=== PATIENT | female | born 1950 | race Caucasian/White ===

== ENCOUNTER → 2020-01-29 08:21 | Outpatient (CLI) | payer MEDICARE, OTHER, SELFPAY ==
[2020-01-29 10:05] LABS: ALB/GLOB Ratio 1.1 RATIO (0.9-2.4); AST(SGOT) 16 U/L (15-37); Alanine Aminotransfer ALT/SGPT 16 U/L (13-56); Albumin, Serum 4.1 g/dL (3.2-5.0); Alkaline Phosphatase 63 U/L (45-117); Anion Gap 3 (5-15); BUN 9 mg/dL (7-18); BUN/Creat Ratio 12.7 RATIO (10-20); Calcium,Total 8.8 mg/dL (8.5-10.1); Chloride 107 mmol/L (98-107); Cholesterol 243 mg/dL (200); Creatinine, Serum 0.71 mg/dL (0.55-1.02); EST Glomerular Filtration Rate 86 mL/min (>60); Est Glom Filt Rate - Afr Amer 104 mL/min (>60); Globulin 3.8 g/dL (2.2-4.2); Glucose 92 mg/dL (74-106); High Density Lipoprotein 63 mg/dL; Potassium 3.8 mmol/L (3.5-5.1); Protein, Total 7.9 g/dL (6.4-8.2); Sodium Level 139 mmol/L (136-145); Triglycerides 170 mg/dL; Very Low Density Lipoprotein 34 mg/dL (5-40)
== END ==
PROVIDERS: PCP Family Medicine; Referring Provider Family Medicine; Visit Provider Family Medicine
DX: E78.5 Hyperlipidemia, unspecified (principal)
CPT/HCPCS: 36415; 80053; 80061

== ENCOUNTER → 2020-02-22 07:51 | Outpatient (CLI) | payer MEDICARE, OTHER, SELFPAY ==
--- NOTE | 2020-02-22 07:53 | BI_ITS ---
MAMMOGRAPHY - BILATERAL SCREENING REASON FOR EXAM: Female, 69 years old. Routine annual screening examination. PERTINENT HISTORY: Non-contributory. TECHNIQUE: Digital bilateral breast murray (3D mammographic acquisition) in the CC and MLO projections. 2-D mediolateral oblique (MLO) and craniocaudad (CC) views of both breasts were obtained. CAD: Full Field Digital Mammography with Computer Added Detection was performed. COMPARISON: No comparison mammograms available at this time. If any prior films become available, an addendum to this report can be generated. FINDINGS: Breast Composition: The breasts are almost entirely fatty. There are no dominant masses or suspicious calcifications. Small benign-appearing bilateral axillary lymph nodes. No other significant abnormalities are identified. There has been no significant change since the prior study. BI/SCREEN MAMM (CAD) W/MURRAY BILAT IMPRESSION: Stable bilateral screening mammogram. Yearly follow-up mammogram recommended. (A) ASSESSMENT CATEGORY: BIRADS Category 2: Benign. A letter regarding these results will be sent to the patient by the facility within 30 days. Approximately 10% of breast cancers are not detected by mammography. A normal mammogram should not delay biopsy of a clinically suspicious abnormality. [id number] Electronically Signed: Noe Capps, at 12:53 EDT , Service support ,
== END ==
PROVIDERS: PCP Family Medicine; Referring Provider Family Medicine; Visit Provider Family Medicine
DX: Z12.31 Encounter for screening mammogram for malignant neoplasm of breast (principal)
CPT/HCPCS: 77063; 77067

== ENCOUNTER → 2020-12-19 17:00 | Outpatient (CLI) | payer MEDICARE, OTHER, SELFPAY ==
[2020-12-19 18:20] LABS: Lymphocyte 25 % (19-41); Metamyelocyte 6 % (0-1); Monocyte 29 % (0-10); Neutrophil-Segmented 40 % (47-70); Total Cells Counted 100 (MANUAL DIFF)
[2020-12-19 18:24] LABS: Hematocrit 37.3 % (37-47); Hemoglobin 11.7 g/dL (12.0-15.0); Mean Corpuscular Hgb 27.7 pg (27.0-32.0); Mean Corpuscular Volume 88.2 fL (81-99); Red Blood Count 4.23 M/mm3 (4.2-5.4); White Blood Count 8.3 K/mm3 (4.4-11.0)
[2020-12-19 18:25] LABS: Differential Indicated MANUAL DIFF; Mean Corp Hgb Conc 31.4 g/dL (32-36); Mean Platelet Vol. 11.9 fl (6.2-12.0); POSITIVE COUNT YES; POSITIVE DIFFERENTIAL YES; POSITIVE MORPHOLOGY YES; Platelet Count 207 K/mm3 (150-450); RBC Distribution Width CV 13.5 % (11.6-14.6); RBC Distribution Width SD 43.6 fl (35.1-43.9)
[2020-12-19 18:26] LABS: Basophil% 0.1 % (0-1); Eosinophils% 1.2 % (0-5); Monocyte% 29.9 % (0-10); Neutrophil % 42.4 % (47-70)
[2020-12-19 18:29] LABS: Absolute Lymphocyte Count 2.07 X10^3/uL (0.83-4.51); Absolute Neutrophil Count 3.3 X10^3/uL (2.0-7.7); Basophil# 0.01 X10^3/uL; Lymphocyte # 1.74 X10^3/ul (0.83-4.51); Monocyte# 2.47 X10^3/uL
[2020-12-19 18:30] LABS: Anisocytosis RARE; Platelet Estimate ADEQUATE (ADEQ); Red Cell Morphology N CHROM NORMAL (NORM C&C)
[2020-12-19 19:26] LABS: ALB/GLOB Ratio 1.3 RATIO (0.9-2.4); AST(SGOT) 33 U/L (15-37); Alanine Aminotransfer ALT/SGPT 31 U/L (13-56); Albumin, Serum 4.2 g/dL (3.2-5.0); Alkaline Phosphatase 92 U/L (45-117); Anion Gap 10 (5-15); BUN 10 mg/dL (7-18); BUN/Creat Ratio 12.7 RATIO (10-20); Calcium,Total 8.7 mg/dL (8.5-10.1); Chloride 99 mmol/L (98-107); Creatinine, Serum 0.79 mg/dL (0.55-1.02); EST Glomerular Filtration Rate 76 mL/min (>60); Est Glom Filt Rate - Afr Amer 92 mL/min (>60); Globulin 3.3 g/dL (2.2-4.2); Glucose 86 mg/dL (74-106); Protein, Total 7.5 g/dL (6.4-8.2); Sodium Level 137 mmol/L (136-145)
[2020-12-20 10:20] LABS: Pathologist Review Reviewed
== END ==
PROVIDERS: PCP Family Medicine; Referring Provider Family Medicine; Visit Provider Family Medicine
DX: K57.92 Diverticulitis of intestine, part unspecified, without perforation or abscess without bleeding (principal)
CPT/HCPCS: 36415; 80053; 85025

== ENCOUNTER → 2020-12-20 08:37 | Outpatient (CLI) | payer MEDICARE, OTHER, SELFPAY ==
--- NOTE | 2020-12-20 08:41 | CT_ITS ---
STUDY: CT ABDOMEN AND PELVIS WITH CONTRAST REASON FOR EXAM: Female, 70 years old. DIVERTICULITIS RADIATION DOSAGE (If Supplied By Facility): CTDIvol = ( 6.9 ) mGy, DLP = ( 448.58 ) mGycm TECHNIQUE: Transaxial images were obtained from the dome of the diaphragm to the symphysis pubis with oral contrast. Oral and amp; IV Gastrografin and amp; 100mL Isovue-300 was administered. Sagittal and coronal images were reconstructed. Individualized dose optimization techniques were used for this CT. COMPARISON: None. FINDINGS: Calcified granulomas in the left lower lobe. The visualized portions of the heart are within normal limits. Normal liver. There are surgical clips in the gallbladder fossa consistent with a prior cholecystectomy. There are multiple benign calcified granulomata of the spleen. Normal pancreas. Normal bilateral adrenal glands. Subcentimeters cyst in the medial midportion of the right kidney. The sigmoid colon centimeters cyst in the midportion of the left kidney. There is a small hiatal hernia. Normal small intestine. There is diverticulosis, with thickening of the colon wall, and pericolonic inflammation changes consistent with acute sigmoid diverticulitis. There is a 1.2 cm x 1.2 cm focal hypodensity along the antimesenteric aspect of the sigmoid colon. This may represent a focal area of phlegmon. Follow-up is recommended. The appendix is visualized and appears normal. There is diffuse atherosclerotic calcification of the abdominal aorta, and its major visceral branches without a demonstrated aneurysm. Normal inferior vena cava. Normal retroperitoneum. Normal urinary bladder. A tiny amount of fluid is seen in the right cul-de-sac. Normal abdominal wall. There are diffuse degenerative changes of the visualized lumbar spine. Minimal anterior listhesis of L3 on L4. CT/Abdomen/Pelvis WITH Contrast IMPRESSION: Sigmoid diverticulitis as described. Small bilateral renal cysts. A tiny amount of free fluid is seen in the pelvis. Electronically Signed: Noe Capps MD at 11:55 EDT , Service support ,
== END ==
PROVIDERS: PCP Family Medicine; Referring Provider Family Medicine; Visit Provider Family Medicine
DX: K57.92 Diverticulitis of intestine, part unspecified, without perforation or abscess without bleeding (principal)
CPT/HCPCS: 74177; Q9967; A4216

== ENCOUNTER → 2021-01-02 10:08 | Outpatient (CLI) | payer MEDICARE, OTHER, SELFPAY ==
[2021-01-02 12:44] LABS: AST(SGOT) 11 U/L (15-37); Alanine Aminotransfer ALT/SGPT 16 U/L (13-56); Albumin, Serum 3.8 g/dL (3.2-5.0); Alkaline Phosphatase 57 U/L (45-117); Anion Gap 9 (5-15); BUN 6 mg/dL (7-18); BUN/Creat Ratio 11.5 RATIO (10-20); Calcium,Total 8.6 mg/dL (8.5-10.1); Chloride 101 mmol/L (98-107); Cholesterol 196 mg/dL (200); Creatinine, Serum 0.52 mg/dL (0.55-1.02); EST Glomerular Filtration Rate 122 mL/min (>60); Est Glom Filt Rate - Afr Amer 147 mL/min (>60); Globulin 3.7 g/dL (2.2-4.2); Glucose 68 mg/dL (74-106); High Density Lipoprotein 56 mg/dL; Potassium 3.8 mmol/L (3.5-5.1); Protein, Total 7.5 g/dL (6.4-8.2); Sodium Level 139 mmol/L (136-145); Triglycerides 153 mg/dL; Very Low Density Lipoprotein 31 mg/dL (5-40)
== END ==
PROVIDERS: PCP Family Medicine; Referring Provider Family Medicine; Visit Provider Family Medicine
DX: E78.5 Hyperlipidemia, unspecified (principal)
CPT/HCPCS: 36415; 80053; 80061

== ENCOUNTER → 2021-01-14 09:23 | Outpatient (CLI) | payer MEDICARE, OTHER, SELFPAY ==
--- NOTE | 2021-01-14 09:26 | RAD_ITS ---
STUDY: X-RAY - LEFT HAND REASON FOR EXAM: Female, 70 years old. Pain. Evaluate for arthritis. TECHNIQUE: 3 view(s) of the hand. COMPARISON: None. FINDINGS: Marked generalized osteopenia. Moderate arthrosis of the radiocarpal articulation. Moderate arthrosis of the radiocarpal row. Moderate arthrosis of the first CMC joint. Moderate arthrosis of the MCP and IP joints with central erosions of the DIP joints of the second, third, fourth and fifth digits. The soft tissue structures are unremarkable. RAD/Hand Min 3 Views IMPRESSION: Osteopenia with diffuse moderate erosive osteoarthropathy. No acute abnormality. Electronically Signed: Landon Tapia MD at 9:54 EDT , Service support ,
--- NOTE | 2021-01-14 09:27 | RAD_ITS ---
STUDY: X-RAY - RIGHT HAND REASON FOR EXAM: Female, 70 years old. Pain. Evaluate for arthritis. TECHNIQUE: 3 view(s) of the hand. COMPARISON: None. FINDINGS: Marked generalized osteopenia. Moderate arthrosis of the radiocarpal articulation. Moderate arthrosis of the radial carpal row. Moderate arthrosis at the first CMC joint. Mild osteoarthritic changes of the MCP joints. Moderate osteoarthritic changes of the PIP joints with central erosive changes of the first, second, third, fourth and fifth digits. The soft tissue structures are unremarkable. RAD/Hand Min 3 Views IMPRESSION: Osteopenia with moderate changes of erosive osteoarthropathy. No acute abnormality or periostitis. Electronically Signed: Landon Tapia MD at 9:57 EDT , Service support ,
[2021-01-14 11:39] LABS: Erythrocyte Sedimentation Rate 27 mm/hr (0-30)
[2021-01-14 12:11] LABS: CRP < 2.90 mg/L (0.0-3.0); Rheumatoid Factor < 10.0 IU/mL (<15)
[2021-01-16 07:49] LABS: CCP IgG Antibodies 6 units (0-19)
[2021-01-16 13:36] LABS: ANTINUCLEAR ANTIBODIES DIRECT Positive (Negative)
== END ==
PROVIDERS: PCP Family Medicine; Referring Provider Family Medicine; Visit Provider Family Medicine
DX: M19.041 Primary osteoarthritis, right hand (principal); M19.042 Primary osteoarthritis, left hand
CPT/HCPCS: 36415; 73130; 85652; 86038; 86140; 86200; 86431

== ENCOUNTER 2021-02-11 08:30 | Outpatient (RCR) | payer MEDICARE, OTHER, SELFPAY ==
--- NOTE | 2021-01-24 10:57 | HP.OTEVAL ---
Patient's Visit Information KUSH CHATMAN is a 70 year old F, referred to Occupational Therapy by Dr. Chapo Esquivel MD, with a diagnosis of Bilateral hand arthritis. Date of Evaluation: 01/21/21 Occupational Therapist: Kristen Bone, OTR/L, CHT - Subjective This 70/F was seen for initial OT eval for bilateral hand arthritis. 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 She lives alone, but her sister lives across the street. She enjoys spending time with her 5 grandkids and her 3 great-grandkids. She enjoys reading, but sometimes has to put the book down in order for her to stretch out her hands. She reported new/tight jars are tough and buttons can be awkward, but her other ADLs and IADLs are going fine. She is R handed and stated that her handwriting really hasn't changed with her increased stiffness. She is going to see a RA doctor here soon for a 2nd opinion. Her hands are really stiff when she wakes up, but soaking them in warm water helps. She denies numbness/tingling, and it does not wake her up at night. - Pain Bilateral Hands 1 Pain Intensity Range: 5, 9 - Objective Pt demonstrated swan-neck deformities on her R IF, MF, and RF, as well as her L IF and RF. She also hyperextends at her PIP jts of all fingers and her MCPs are flexed. - ROM Wrist: R: 55*/80* L: 60*/60* Opposition: 10 MP: R IF: 80*, MF: 85*, RF: 85*, LF: 85*. L IF: 70*, MF: 75*, RF: 80*, LF: 75* PIP: R IF: 95*, MF: 98*, RF: 98*, LF: 95*. L IF: 85*, MF:90*, RF: 105*, LF: 100* DIP: R IF: 65*, MF: 65*, RF: 60*, LF: 65*. L IF: 70*, MF: 45*, RF: 60*, LF: 60* ROM Comments: R IF DIP extension: -20*, MF: -10*, RF: -15*, LF: -20*. L IF DIP extension: -35*, MF: -10*, RF:0*, LF: 0* - Strength Preparation Room Worker: R: 35#, L:22# Lateral Pinch: R: 12#, L:12# Tripod Pinch: R: 9#, L:9# Tip-to-Tip Pinch: R: 6#, L:6# Strength Comments: Pt reported discomfort with 3-jaw sachin and tip pinch. 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 with ADLs and IADLs by d.c Goal:: pt will report bilateral hand pain less than 3/10 with use of bilateral hands with ADLs and IADLs by d/c Goal:: Pt will self-report increased knowledge and implementation of joint protection and energy conservation techniques by next session. pt will demo understanding of using ad. eq. to prevent joint stress with ADLs and IADL by 3rd session. Goal:: pt will self-report a decrease in stiffness by 70% in the morning after implementation of HEP and stretches to increase ability to open jars and don button down shirts. - Rehabilitation General Assessment: pt demonstrated swan-neck deformities, increased pain with composite fists, increased stiffness, a slight decrease in strength and decreased finger ROM. Pt would benefit from skilled OT services 1-2x a week for 5 weeks to manage stiffness, increase strength, and education ADL adaptations to preserve joints. Today, therapist performed trigger point release and PROM to MCPs, PIPs, and DIPs to bilateral hands after paraffin wax to decrease pain and stiffness. Pt was also educated on joint conservation and agreed with POC. Therapy session was directly supervised and doc. approved by Kristen Bone OTR/L,CHT Rehabilitation Potential: Fair - Anticipated Interventions A/AAROM/PROM, Triggerpoint Release, Modalities, Joint Protection/Energy Conservation, ADL Training, Home Program - Visit Plan Frequency: 1-2x /Week Duration: 4-6 Weeks TEXT: Thank you for the opportunity to evaluate your patient. For Medicare and Medicare HMO plans, please review the plan of care and approve it. It will need to be FAXED BACK to us at [phone] for Medicare purposes. Please let me know if there are questions or concerns regarding this plan of care. Physician Signature: Date:
--- NOTE | 2021-02-11 08:37 | HP.OTDCSUM ---
It has been my pleasure to treat KUSH CHATMAN under orders from Dr. Chapo Esquivel MD, for the diagnosis of Bilateral hand arthritis for a total of 4 visit(s). Please see the following information for a summary of their discharge status. % Improvement: 70 Objective/Function: right 30# left 25#. 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 pt reports she has made home modifications with ADls and IADsl. 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 with ADLs and IADLs by d.c Goal:: pt will report bilateral hand pain less than 3/10 with use of bilateral hands with ADLs and IADLs by d/c Goal:: Pt will self-report increased knowledge and implementation of joint protection and energy conservation techniques by next session. pt will demo understanding of using ad. eq. to prevent joint stress with ADLs and IADL by 3rd session. Goal:: pt will self-report a decrease in stiffness by 70% in the morning after implementation of HEP and stretches to increase ability to open jars and don button down shirts. Plan: D/C Discharge Comments: pt was seen for 4 OT visits- Therapy ed. pt on joint protection tang. and ad. eq. to assist in GEO with ADls. Pt at this time states she is still doing her yard care and home mtg. Pt reports her hands do not stop- pt agrees to POC. If there are questions or concerns regarding this patient's occupational therapy, please fell free to call me at [phone]. Thank you for the referral of this patient. Sincerely, Kristen Bone, OTR/L, CHT
== END 2021-02-11 19:00 | disposition home or self-care (01) ==
LOC: OT 08:30
PROVIDERS: PCP Family Medicine; Referring Provider Family Medicine; Visit Provider Family Medicine
DX: M19.042 Primary osteoarthritis, left hand (principal); M19.041 Primary osteoarthritis, right hand
CPT/HCPCS: 97140; 97165; 97530

== ENCOUNTER 2021-07-22 09:20 | Outpatient (CLI) | payer MEDICARE, OTHER, SELFPAY ==
[2021-07-22 12:22] LABS: Hematocrit 39.7 % (37-47); Hemoglobin 12.8 g/dL (12.0-15.0); Mean Corp Hgb Conc 32.2 g/dL (32-36); Mean Corpuscular Hgb 28.6 pg (27.0-32.0); Mean Corpuscular Volume 88.6 fL (81-99); Mean Platelet Vol. 11.5 fl (6.2-12.0); POSITIVE COUNT YES; POSITIVE MORPHOLOGY YES; Platelet Count 249 K/mm3 (150-450); RBC Distribution Width CV 12.8 % (11.6-14.6); Red Blood Count 4.48 M/mm3 (4.2-5.4); White Blood Count 3.6 K/mm3 (4.4-11.0)
[2021-07-22 12:23] LABS: Differential Indicated MANUAL DIFF
[2021-07-22 12:54] LABS: AST(SGOT) 12 U/L (15-37); Alanine Aminotransfer ALT/SGPT 15 U/L (13-56); Alkaline Phosphatase 61 U/L (45-117); Anion Gap 7 (5-15); BUN 8 mg/dL (7-18); BUN/Creat Ratio 12.1 RATIO (10-20); Chloride 104 mmol/L (98-107); Creatinine, Serum 0.66 mg/dL (0.55-1.02); EST Glomerular Filtration Rate 93 mL/min (>60); Est Glom Filt Rate - Afr Amer 113 mL/min (>60); Globulin 4.1 g/dL (2.2-4.2); Glucose 87 mg/dL (74-106); Potassium 3.6 mmol/L (3.5-5.1); Protein, Total 8.1 g/dL (6.4-8.2); Sodium Level 138 mmol/L (136-145); T4 Free Direct 1.07 ng/dL (0.76-1.46); Thyroid Stim Hormone (TSH) 3.48 uIU/mL (0.358-3.74)
[2021-07-22 13:13] LABS: Eosinophil 1 % (0-5); Lymphocyte 35 % (19-41); Metamyelocyte 3 % (0-1); Monocyte 17 % (0-10); Myelocyte 5 % (0-0); Neutrophil-Segmented 39 % (47-70); Total Cells Counted 100 (MANUAL DIFF)
[2021-07-22 13:14] LABS: Platelet Estimate ADEQUATE (ADEQ); Red Cell Morphology NORM C+C NORMAL (NORM C&C)
[2021-07-22 13:15] LABS: Absolute Neutrophil Count 1.4 X10^3/uL (2.0-7.7)
[2021-07-23 17:54] LABS: Anti-Thyroglobulin AB < 1.0 IU/mL (0.0-0.9); Thyroglobulin, Serum Qt. 17.5 ng/mL (1.5-38.5); Thyroid Peroxidase AB < 8 IU/mL (0-34)
[2021-07-24 12:51] LABS: Pathologist Review Reviewed
== END 2021-07-22 23:59 | disposition home or self-care (01) ==
LOC: MFPLAB 09:21
PROVIDERS: PCP Family Medicine; Referring Provider Family Medicine; Visit Provider Family Medicine
DX: E04.1 Nontoxic single thyroid nodule (principal)
CPT/HCPCS: 36415; 80053; 84432; 84439; 84443; 85025; 86376; 86800

== ENCOUNTER 2021-07-29 14:11 | Outpatient (CLI) | payer MEDICARE, OTHER, SELFPAY ==
--- NOTE | 2021-07-29 14:15 | BI_ITS ---
MAMMOGRAPHY - BILATERAL SCREENING REASON FOR EXAM: Female, 71 years old. Routine annual screening examination. PERTINENT HISTORY: Non-contributory. TECHNIQUE: Digital bilateral breast murray (3D mammographic acquisition) in the CC and MLO projections. 2-D mediolateral oblique (MLO) and craniocaudad (CC) views of both breasts were obtained. CAD: Full Field Digital Mammography with Computer Added Detection was performed. COMPARISON: Comparison is made with prior study dated 02/22/2020. FINDINGS: Breast Composition: There are scattered areas of fibroglandular density. There are no dominant masses or suspicious calcifications. No other significant abnormalities are identified. There has been no significant change since the prior study. BI/SCRN MAMM (CAD)W/MURRAY BILAT IMPRESSION: Stable bilateral screening mammogram. Yearly follow-up mammogram recommended. (A) ASSESSMENT CATEGORY: BIRADS Category 1: Negative. A letter regarding these results will be sent to the patient by the facility within 30 days. Approximately 10% of breast cancers are not detected by mammography. A normal mammogram should not delay biopsy of a clinically suspicious abnormality. [id number] Electronically Signed: Noe Capps MD at 15:28 EST ,
--- NOTE | 2021-07-29 14:16 | US_ITS ---
STUDY: THYROID ULTRASOUND REASON FOR EXAM: Female, 71 years old. Thyroid nodule felt on examination. TECHNIQUE: Ultrasound evaluation of the thyroid was performed with real-time and static coppola-scale imaging. COMPARISON: None. FINDINGS: RIGHT LOBE: The right lobe of the thyroid gland measures 2.9 cm x 1.4 cm x 1.4 cm. There is a homogeneous echotexture. There are no demonstrated solid, cystic or complex lesions. LEFT LOBE: The left lobe of the thyroid gland measures 3.1 cm x 1.1 cm x 1.3 cm. There is a homogeneous echotexture. There are no demonstrated solid, cystic or complex lesions. ISTHMUS: The isthmus measures 2.0 mm. The regional lymph nodes are normal. US/Thyroid IMPRESSION: Normal ultrasound examination of the thyroid. Electronically Signed: Noe Capps MD at 14:09 EST ,
--- NOTE | 2021-07-29 14:49 | BD_ITS ---
STUDY: DUAL ENERGY X-RAY ABSORPTIOMETRY / DXA REASON FOR EXAM: Female, 71 years old. [id number]. Patient is postmenopausal. TECHNIQUE: Bone Mineral Density (BMD) measurements of lumbar spine and bilateral hips were obtained. COMPARISON: None. FINDINGS: Lumbar Spine (L1-L4): g/cm2 (1.319) / T-score (2.5) / Z-score (4.8) Findings are suggestive of normal bone density with a low fracture risk. Left Femur Total: g/cm2 (1.146) / T-score (1.7) / Z-score (3.4) Left Femoral Neck: g/cm2 (1.075) / T-score (2.0) / Z-score (4.0) Right Femur Total: g/cm2 (1.115) / T-score (1.4) / Z-score (3.1) Right Femoral Neck: g/cm2 (1.018) / T-score (1.5) / Z-score (3.5) BD/Dexa Bone Density Study IMPRESSION: The patient is considered normal as outlined below according to World [employer] Organization (WHO) criteria with a low fracture risk. Reference Information: The T-score is the number of standard deviations above or below the standard which is normal for young adults at their peak bone mineral density. The World Health Organization (WHO) interprets the T-scores as follows: Above -1 Normal bone density Between -1 and -2.5 Osteopenia Equal to / or below -2.5 Osteoporosis As a practical clinical guideline, osteopenia may be graded as follows: Mild -1 through -1.5 Moderate -1.6 through -2.0 Severe -2.1 through -2.4 The Z-score is the number of standard deviations above or below age-matched controls. A Z-score of less than -1.5 would be considered abnormal. References: 1. NIH Osteoporosis and Related Bone Diseases www osteo.org 2. International Society for Clinical Densitometry www iscd.org 3. National Osteoporosis Foundation www nof.org Electronically Signed: Noe Capps MD at 12:26 EST ,
== END 2021-07-29 23:59 | disposition home or self-care (01) ==
LOC: OPBD 14:13
PROVIDERS: PCP Family Medicine; Visit Provider Family Medicine
DX: Z78.0 Asymptomatic menopausal state (principal); Z12.31 Encounter for screening mammogram for malignant neoplasm of breast; E04.1 Nontoxic single thyroid nodule
CPT/HCPCS: 76536; 77063; 77067; 77080

== ENCOUNTER 2021-08-21 15:01 | Outpatient (CLI) | payer MEDICARE, OTHER, SELFPAY ==
[2021-08-21 17:42] LABS: Basophil# 0.01 X10^3/uL; Basophil% 0.3 % (0-1); Eosinophil# 0.07 X10^3/uL; Hematocrit 37.6 % (37-47); Hemoglobin 11.7 g/dL (12.0-15.0); Lymphocyte % 33.6 % (19-41); Mean Corp Hgb Conc 31.1 g/dL (32-36); Mean Corpuscular Hgb 27.5 pg (27.0-32.0); Mean Corpuscular Volume 88.5 fL (81-99); Mean Platelet Vol. 11.7 fl (6.2-12.0); Monocyte# 1.09 X10^3/uL; Monocyte% 30.5 % (0-10); NRBC Flagged by Analyzer 0 % (0-5); Neutrophil # 1.04 X10^3/uL (2.7-7.7); Neutrophil % 29.1 % (47-70); POSITIVE MORPHOLOGY YES; Platelet Count 236 K/mm3 (150-450); RBC Distribution Width CV 12.8 % (11.6-14.6); RBC Distribution Width SD 41.4 fl (35.1-43.9); Red Blood Count 4.25 M/mm3 (4.2-5.4); White Blood Count 3.6 K/mm3 (4.4-11.0)
[2021-08-21 17:45] LABS: Differential Indicated SCAN CRITERIA MET
[2021-08-21 18:05] LABS: Cholesterol 211 mg/dL (200); High Density Lipoprotein 51 mg/dL; Triglycerides 144 mg/dL; Very Low Density Lipoprotein 29 mg/dL (5-40)
[2021-08-21 18:23] LABS: Differential Comment SCANNED
== END 2021-08-21 23:59 | disposition home or self-care (01) ==
LOC: MFPLAB 15:07
PROVIDERS: PCP Family Medicine; Referring Provider Family Medicine; Visit Provider Family Medicine
DX: D72.819 Decreased white blood cell count, unspecified (principal); E78.5 Hyperlipidemia, unspecified
CPT/HCPCS: 36415; 80061; 85025

== ENCOUNTER 2021-09-08 09:45 | Outpatient (CLI) | payer MEDICARE, OTHER, SELFPAY ==
[2021-09-08 10:45] LABS: Hematocrit 40.3 % (37-47); Hemoglobin 12.5 g/dL (12.0-15.0); Mean Corpuscular Hgb 27.7 pg (27.0-32.0); Mean Corpuscular Volume 89.4 fL (81-99); Mean Platelet Vol. 11.1 fl (6.2-12.0); POSITIVE COUNT YES; POSITIVE MORPHOLOGY YES; Platelet Count 196 K/mm3 (150-450); RBC Distribution Width CV 12.9 % (11.6-14.6); RBC Distribution Width SD 42.4 fl (35.1-43.9); Red Blood Count 4.51 M/mm3 (4.2-5.4); White Blood Count 4.1 K/mm3 (4.4-11.0)
[2021-09-08 10:46] LABS: Differential Indicated MANUAL DIFF
[2021-09-08 11:27] LABS: Basophil 1 % (0-1); Eosinophil 2 % (0-5); Lymphocyte 39 % (19-41); Metamyelocyte 3 % (0-1); Monocyte 13 % (0-10); Neutrophil-Segmented 42 % (47-70); Platelet Estimate ADEQUATE (ADEQ); Red Cell Morphology NORM C+C NORMAL (NORM C&C); Total Cells Counted 100 (MANUAL DIFF)
[2021-09-08 11:28] LABS: Absolute Neutrophil Count 1.7 X10^3/uL (2.0-7.7)
[2021-09-08 12:36] LABS: Pathologist Review Reviewed
== END 2021-09-08 23:59 | disposition home or self-care (01) ==
PROVIDERS: PCP Family Medicine; Visit Provider Family Medicine
DX: E78.00 Pure hypercholesterolemia, unspecified (principal)
CPT/HCPCS: 36415; 85025

== ENCOUNTER 2021-12-26 22:35 | Emergency (ER) | payer MEDICARE, OTHER, SELFPAY ==
[2021-12-26 22:37] VITALS: BP 128/75; PULSE 97; RESP 16; TEMP 36.8; O2SAT 99; BMI 22.0
[2021-12-26 23:07] LABS: Mucous, Urine 0 SEEN /hpf (<or=2+); Squamous Epithelial Cells - UA 0 SEEN /hpf (5-10); White Blood Cells 0 SEEN /hpf (0-5)
[2021-12-26 23:08] LABS: Color, Urine Yellow (Yellow); Glucose, Dipstick Normal (Normal); Ketone-Dipstick 5 mg/dl (Negative); Leukocyte Esterase-Dipstick 100 /ul (Negative); Nitrite-Dipstick Negative (Negative); Occult Blood-Urine 250 /ul (Negative); Protein-Dipstick 30 mg/dl (Negative); Urine Bilirubin Dipstick Negative (Negative); Urine Urobilinogen 1 mg/dl (Normal)
[2021-12-26 23:16] LABS: Urine Clarity Clear (Clear)
[2021-12-26 23:20] LABS: Bacteria 1+ /hpf (None Seen); Red Blood Cells-Urine 10-25 SEEN /hpf (0-5)
[2021-12-27 00:05] LABS: Absolute Lymphocyte Count 0.97 X10^3/uL (0.83-4.51); Absolute Neutrophil Count 3.5 X10^3/uL (2.0-7.7); Basophil# 0.01 X10^3/uL; Basophil% 0.1 % (0-1); Eosinophil# 0.02 X10^3/uL; Eosinophils% 0.3 % (0-5); Hematocrit 35.7 % (37-47); Hemoglobin 11.9 g/dL (12.0-15.0); Lymphocyte # 0.97 X10^3/ul (0.83-4.51); Lymphocyte % 13.8 % (19-41); Mean Corp Hgb Conc 33.3 g/dL (32-36); Mean Corpuscular Hgb 28.7 pg (27.0-32.0); Mean Platelet Vol. 10.8 fl (6.2-12.0); Monocyte# 2.31 X10^3/uL; Monocyte% 32.8 % (0-10); NRBC Flagged by Analyzer 0 % (0-5); Neutrophil # 3.49 X10^3/uL (2.7-7.7); Neutrophil % 49.5 % (47-70); POSITIVE DIFFERENTIAL YES; Platelet Count 241 K/mm3 (150-450); RBC Distribution Width CV 12.8 % (11.6-14.6); RBC Distribution Width SD 40.3 fl (35.1-43.9); Red Blood Count 4.15 M/mm3 (4.2-5.4); White Blood Count 7.1 K/mm3 (4.4-11.0)
[2021-12-27] MEDS: metroNIDAZOLE 500 MG/100 ML BAG 100 MG IV (00:06)
--- NOTE | 2021-12-27 00:22 | EDS_ITS ---
HPI HPI - GI History of Present Illness Chief Complaint: Abd Pain Informant: patient Abdominal Pain/Flank Pain Onset: Weeks (1) Context: Gradual Onset Timing: Continuous Quality: Aching Location: LLQ Current Severity: Moderate Maximum Severity: Moderate Worsened by: Nothing Relieved by: Nothing Nausea/Vomiting/Emesis GI Symptom: Negative for Nausea or Vomiting Diarrhea/Melena/Hematochezia GI Symptom: Negative for Diarrhea, Melena or Hematochezia Associated Symptoms Associated Symptoms: Negative for Dysuria, Frequency, Hematuria or Urgency Narrative Narrative: Patient has been having abdominal pain in the left lower quadrant for the last week. She had some fevers a couple days ago and low-grade fevers today. She saw her PCP today, had an outpatient set of labs and a CT of the abdomen/pelvis, white blood count 7.7, renal function within normal limits, CT showing diverticulitis with a 3.3 cm pericolonic abscess. Given this she was sent to the ED for admission and further management. [facility] Medical History (Updated 12/27/21 @ 00:[address] Oscar Grijalva MD) Anxiety and depression Home Medications duloxetine 30 mg capsule,delayed release 1 cap PO DAILY 12/27/21 [History Last Taken Unknown] duloxetine 60 mg capsule,delayed release 1 cap PO DAILY 12/27/21 [History Last Taken Unknown] ropinirole 0.25 mg tablet 0.25 mg PO DAILY 12/27/21 [History Last Taken Unknown] Allergy/AdvReac Type Severity Reaction Status Date / Time acetaminophen [From Vicodin] Allergy Rash Verified 12/26/21 22:40 codeine Allergy Rash Verified 12/26/21 22:40 hydrocodone [From Vicodin] Allergy Rash Verified 12/26/21 22:40 Surgical History (Updated 12/27/21 @ 00:[address] Oscar Grijalva MD) History of cholecystectomy Social History Smoking Status: Never smoker ROS ROS ED Constitutional Constitutional ED: Reports fever(s); Denies chills Eyes Eyes: Denies change in vision or diplopia ENT ENT ED: Denies rhinorrhea or sore throat Cardiovascular Cardiovascular: Denies chest pain or palpitations Respiratory/Chest Respiratory/Chest: Denies cough or dyspnea Gastrointestinal Gastrointestinal: Reports abdominal pain; Denies diarrhea, hematochezia, melena, nausea or vomiting Genitourinary Genitourinary ED: Denies dysuria or hematuria Musculoskeletal Musculoskeletal: Denies back pain or neck pain Integumentary Denies abscess or rash Neurologic Neurologic: Denies headache(s), paresthesias or weakness Psychiatric Psychiatric: Denies anxiety or suicidal thoughts EXAM Physical Exam Const Vital Signs: 12/26/21 22:37 12/27/21 00:55 Temperature 98.3 F 98.1 F Temperature Source Temporal Oral Pulse Rate 97 79 Respiratory Rate 16 99 H Blood Pressure 128/75 H 120/63 Blood Pressure Mean 92 82 Pulse Ox 99 Oxygen Delivery Method Room Air Room Air Positive well nourished and well developed General Appearance ED: well developed and NAD HEENT Reports moist mucous membranes normocephalic and atraumatic Eyes PERRL and EOMs intact bilaterally Neck full ROM and supple Resp normal respiratory effort and clear to auscultation bilaterally Cardio regular rate, regular rhythm and no murmurs GI non-distended GI Narrative: Tender left lower quadrant moderately, no guarding or rebound tenderness, only other areas of tenderness are across lower abdomen but less so. Auscultation: normoactive bowel sounds Palpation: soft Back/Spine no CVA tenderness General Back: other FROM Extremity normal to inspection General Extremety ED: Negative for edema, pulses abnormal or tenderness General Extremity: Negative for edema or pulses abnormal Neuro oriented x3, CN's II-XII intact bilaterally and no sensory deficits noted Sensorium / Orientation: awake and alert Motor Exam: strength 5/5 throughout Skin no rashes or lesions noted and no wounds MDM MDM MDM Narrative Medical decision making narrative: I was able to see her labs never done today so no need to repeat those at this time. I did obtain a urinalysis, it shows some pyuria, I will send that for culture. She was started on IV Cipro and Flagyl for the diverticulitis, and discussed with hospital personnel. Dr. Pal with surgery states she would not need surgery at this time, more appropriately interventional radiology. Un fortunately it is late Wednesday night and we do not have interventional radiology all weekend so the patient will require transfer to a higher level of care. In discussing this with her, she chooses [facility]. I spoke to Medicine Dr. Ferraro there who accepted her in transfer Lab Data Attestation: I reviewed the patient's lab results. Labs: Laboratory Results - last 24 hr 12/26/21 12/26/21 12/26/21 22:59 23:58 23:58 WBC 7.1 RBC 4.15 L Hgb 11.9 L Hct 35.7 L MCV 86.0 MCH 28.7 MCHC 33.3 RDW Std Deviation 40.3 RDW Coeff of Joshua 12.8 Plt Count 241 MPV 10.8 Immature Gran % (Auto) 3.500 H Neut % (Auto) 49.5 Lymph % (Auto) 13.8 L [place] % (Auto) 32.8 H Eos % (Auto) 0.3 Baso % (Auto) 0.1 Absolute Neuts (auto) 3.5 Absolute Lymphs (auto) 0.97 Nucleated RBC % 0 Sodium 133 L Potassium 3.6 Chloride 98 Carbon Dioxide 27.0 Anion Gap 8 BUN 8 Creatinine 0.70 Estim Creat Clear Calc 35.99 Est GFR (MDRD) Af Amer 106 Est GFR (MDRD) Non-Af 88 BUN/Creatinine Ratio 11.5 Glucose 108 H Calcium 8.8 Urine Color Yellow Urine Clarity Clear Urine pH 7.0 Ur Specific Hector 1.010 Urine Protein 30 H Urine Glucose (UA) Normal Urine Ketones 5 H Urine Occult Blood 250 H Urine Nitrite Negative Urine Bilirubin Negative Urine Urobilinogen 1 H Ur Leukocyte Esterase 100 H Urine RBC 10-25 SEEN Urine WBC 0 SEEN Ur Squamous Epith Cells 0 SEEN Urine Bacteria 1+ Urine Mucus 0 SEEN Discharge Plan Triage Chief Complaint: Abd Pain Other Complaint: Abscess ED Provider: Oscar Grijalva Dx/Rx/DC Orders Clinical Impression: Diverticulitis of large intestine with abscess without bleeding Prescriptions: No Action ropinirole 0.25 mg tablet 0.25 mg PO DAILY Label Comments: take 1 tablet by mouth once daily at bedtime duloxetine 30 mg capsule,delayed release(DR/EC) 1 cap PO DAILY Label Comments: take 1 capsule by mouth once daily with 60 milligram dose duloxetine 60 mg capsule,delayed release(DR/EC) 1 cap PO DAILY Label Comments: take 1 capsule by mouth once daily Primary Care Provider: Chapo Marshall Referrals: Chapo Marshall MD [Primary Care Provider] - Disposition Disposition: Acute Care Hospital [facility]
[2021-12-27 00:30] LABS: Differential Indicated SCAN CRITERIA MET
[2021-12-27 00:31] LABS: Anion Gap 8 (5-15); BUN 8 mg/dL (7-18); BUN/Creat Ratio 11.5 RATIO (10-20); Calcium,Total 8.8 mg/dL (8.5-10.1); Chloride 98 mmol/L (98-107); EST Glomerular Filtration Rate 88 mL/min (>60); Est Glom Filt Rate - Afr Amer 106 mL/min (>60); Estimated Creatinine Clearance 35.99 ml/min; Glucose 108 mg/dL (74-106); Potassium 3.6 mmol/L (3.5-5.1); Sodium Level 133 mmol/L (136-145)
[2021-12-27 00:55] VITALS: BP 120/63; PULSE 79; RESP 18; TEMP 36.7; O2SAT 99
[2021-12-27] MEDS: Ciprofloxacin 400 MG/200 ML BAG 200 MG IV (01:23)
[2021-12-27 01:58] VITALS: BP 126/79; PULSE 76; RESP 18; TEMP 36.7; O2SAT 99
[2021-12-27 02:01] LABS: Differential Comment SCANNED
[2021-12-27 04:03] VITALS: BP 115/60; PULSE 82; RESP 18; TEMP 36.8; O2SAT 100
== END 2021-12-27 04:26 | disposition short-term general hospital (02) ==
PROVIDERS: Emergency Provider Emergency Medicine; PCP Family Medicine; Visit Provider Emergency Medicine
DX: K57.20 Diverticulitis of large intestine with perforation and abscess without bleeding (principal); F41.9 Anxiety disorder, unspecified; F32.A Depression, unspecified; Z79.899 Other long term (current) drug therapy
CPT/HCPCS: 36415; 74177; 80048; 80053; 81001; 85025; 87086; 99285; J7040; Q9967; A4216

== ENCOUNTER → 2021-12-26 | Outpatient (CLI) | payer MEDICARE, OTHER, SELFPAY ==
--- NOTE | 2021-12-26 16:28 | CT_ITS ---
We are attempting to reach an attending provider to discuss findings. An addendum with communication details will be sent when the communication is complete. STUDY: CT Abdomen And Pelvis W/ Contrast Injection 12/26/2021 7:05 PM REASON FOR EXAM: Female, 71 years old. ABDOMINAL PAIN DIVERTICULITIS TECHNIQUE: Transaxial images were obtained with oral contrast, and with Oral and amp; IV Gastrografin and amp; 100mL Isovue-300 intravenous contrast. Individualized dose optimization techniques were used for this CT. COMPARISON: 12/20/2020 FINDINGS: The visualized lung bases are unremarkable. The visualized portions of the heart are within normal limits. Unremarkable liver. There are surgical clips in the gallbladder fossa consistent with a prior cholecystectomy. Unremarkable spleen. Unremarkable pancreas. Unremarkable bilateral adrenal glands. Small cortical hypodensities of the right kidney. ACR White Paper guidelines (Herts, et al. JACR 2018; 15(2):264-273) suggest no follow-up is necessary. There are hypodensities in the left kidney. These are consistent for cysts. No follow up required. Unremarkable visualized stomach. Unremarkable small intestine. There is diverticulosis, with thickening of the colon wall, and pericolonic inflammation changes consistent with acute diverticulitis. Adjacent abscess of the sigmoid colon measures 33 x 25 mm. The appendix is visualized and appears unremarkable. There are calcifications of the abdominal aorta. This is consistent for atherosclerotic disease. There is no abdominal aortic aneurysm. Unremarkable inferior vena cava. Subcentimeter mesenteric lymph nodes. Unremarkable urinary bladder. There is atrophy of the uterus. Unremarkable abdominal wall. There are diffuse degenerative changes of the visualized lumbar spine. There is bilateral neural foraminal stenosis at L4-5 and L5-S1. CT/Abdomen/Pelvis WITH Contrast IMPRESSION: (NOT LISTED IN ORDER OF SIGNIFICANCE) Acute sigmoid diverticulitis with a 33 mm adjacent abscess. Other findings as above. Electronically Signed: Shola Cain MD at 19:09 EDT ,
== END | disposition home or self-care (01) ==
PROVIDERS: PCP Family Medicine; Referring Provider Family Medicine; Visit Provider Family Medicine
DX: K57.92 Diverticulitis of intestine, part unspecified, without perforation or abscess without bleeding (principal)
CPT/HCPCS: 74177; Q9967

== ENCOUNTER → 2021-12-26 | Outpatient (CLI) | payer MEDICARE, OTHER, SELFPAY ==
[2021-12-26 17:22] LABS: Bacteria 0 SEEN /hpf (None Seen); Mucous, Urine 0 SEEN /hpf (<or=2+); Squamous Epithelial Cells - UA 0 SEEN /hpf (5-10)
[2021-12-26 17:53] LABS: Absolute Lymphocyte Count 1.16 X10^3/uL (0.83-4.51); Absolute Neutrophil Count 3.9 X10^3/uL (2.0-7.7); Basophil# 0.01 X10^3/uL; Basophil% 0.1 % (0-1); Eosinophil# 0.04 X10^3/uL; Eosinophils% 0.5 % (0-5); Hematocrit 38.2 % (37-47); Hemoglobin 12.2 g/dL (12.0-15.0); Lymphocyte # 1.16 X10^3/ul (0.83-4.51); Lymphocyte % 15.1 % (19-41); Mean Corp Hgb Conc 31.9 g/dL (32-36); Mean Corpuscular Hgb 28.2 pg (27.0-32.0); Mean Corpuscular Volume 88.2 fL (81-99); Mean Platelet Vol. 11.6 fl (6.2-12.0); Monocyte# 2.42 X10^3/uL; Monocyte% 31.4 % (0-10); NRBC Flagged by Analyzer 0 % (0-5); Neutrophil # 3.85 X10^3/uL (2.7-7.7); POSITIVE DIFFERENTIAL YES; Platelet Count 264 K/mm3 (150-450); RBC Distribution Width CV 12.8 % (11.6-14.6); RBC Distribution Width SD 41.3 fl (35.1-43.9); Red Blood Count 4.33 M/mm3 (4.2-5.4); White Blood Count 7.7 K/mm3 (4.4-11.0)
[2021-12-26 18:10] LABS: ALB/GLOB Ratio 0.8 RATIO (0.9-2.4); AST(SGOT) 16 U/L (15-37); Alanine Aminotransfer ALT/SGPT 18 U/L (13-56); Albumin, Serum 3.7 g/dL (3.2-5.0); Alkaline Phosphatase 79 U/L (45-117); Anion Gap 8 (5-15); BUN 8 mg/dL (7-18); BUN/Creat Ratio 12.4 RATIO (10-20); Calcium,Total 9.1 mg/dL (8.5-10.1); Chloride 97 mmol/L (98-107); Creatinine, Serum 0.64 mg/dL (0.55-1.02); EST Glomerular Filtration Rate 96 mL/min (>60); Est Glom Filt Rate - Afr Amer 116 mL/min (>60); Globulin 4.5 g/dL (2.2-4.2); Glucose 97 mg/dL (74-106); Potassium 3.8 mmol/L (3.5-5.1); Protein, Total 8.2 g/dL (6.4-8.2); Sodium Level 133 mmol/L (136-145)
[2021-12-26 18:13] LABS: Differential Indicated SCAN CRITERIA MET
[2021-12-26 18:28] LABS: Differential Comment SCANNED
[2021-12-26 18:39] LABS: Color, Urine Yellow (Yellow); Glucose, Dipstick Normal (Normal); Ketone-Dipstick Negative (Negative); Leukocyte Esterase-Dipstick 25 /ul (Negative); Nitrite-Dipstick Negative (Negative); Occult Blood-Urine 250 /ul (Negative); Protein-Dipstick 30 mg/dl (Negative); Urine Bilirubin Dipstick Negative (Negative); Urine Clarity Clear (Clear); Urine Urobilinogen 1 mg/dl (Normal); Urine pH 6.5 (5.0 - 8.0)
[2021-12-26 19:01] LABS: Amorphous Sediment 1+ URATE; Red Blood Cells-Urine 10-25 SEEN /hpf (0-5); White Blood Cells 0-5 SEEN /hpf (0-5)
== END | disposition home or self-care (01) ==
LOC: MFPLAB 16:09
PROVIDERS: PCP Family Medicine; Referring Provider Family Medicine; Visit Provider Family Medicine
DX: K57.92 Diverticulitis of intestine, part unspecified, without perforation or abscess without bleeding (principal)
CPT/HCPCS: 36415; 80053; 81001; 85025; 87086; 87088

== ENCOUNTER → 2022-01-08 | Outpatient (CLI) | payer MEDICARE, OTHER, SELFPAY ==
--- NOTE | 2022-01-08 06:55 | CT_ITS ---
INDICATION: DIVERTICULITIS EXAMINATION: CT ABDOMEN AND PELVIS WITH CONTRAST - CT Abdomen And Pelvis W/ Contrast Injection TECHNIQUE: Helically acquired images were obtained of the abdomen and pelvis following IV contrast. A radiation dose optimization technique was used for this scan. IV Contrast dosage and agent: 100 mL of ISOVUE 300. Oral contrast: None. COMPARISON: 12/26/2021. FINDINGS: LOWER CHEST: Lung bases are clear. No cardiomegaly or pericardial effusion. LIVER: Homogeneous. No focal mass. GALLBLADDER AND BILIARY TREE: No calcified gallstones. No gallbladder distension or wall edema. No intra- or extrahepatic biliary ductal dilation. PANCREAS: No focal cystic or solid mass. SPLEEN: Normal size without focal cystic or solid mass. ADRENAL GLANDS: No nodules. KIDNEYS AND URETERS: Normal renal size and position. No hydronephrosis. PERITONEUM: No ascites or free air. No other fluid collection. BOWEL: Small type I hiatus hernia is visualized, the stomach is distended with the food material visualized within the fundus. Fluid-filled loops of small bowel visualized but no evidence of significant small bowel distention to suggest obstruction. No significant wall thickening visualized in the small bowel loops. Prominence of the large bowel loops visualized with fluid-filled distention seen throughout the colon, thickening of the wall of the descending colon and rectosigmoid, stranding visualized in the fat plane surrounding the sigmoid colon consistent with the history of diverticulitis, a well-circumscribed thick walled collection is visualized along the inferior aspect of the sigmoid colon superior to the urinary bladder, thick enhancing wall is visualized with extensive stranding of the adjacent fat planes is seen consistent with an abscess that measures 3.1 x 3.5 x 3.8 cm seen on axial series 2 image 84. LYMPH NODES: No significantly enlarged mesenteric or retroperitoneal lymph nodes. VESSELS: Aorta is non-dilated. URINARY BLADDER: Thickening of the wall of the urinary bladder is visualized with extensive stranding of the adjacent fat planes consistent with inflammatory changes most likely due to the adjacent abscess collection, findings would be worrisome for future development of a colovesical fistula would recommend drainage of abscess collection. REPRODUCTIVE ORGANS: No pelvic masses. ABDOMINAL WALL: No discrete abdominal or pelvic wall hernia. BONES: No lytic or blastic abnormality. CT/Abdomen/Pelvis WITH Contrast IMPRESSION: 3.8 cm diverticular abscess collection visualized inferior to the sigmoid colon and superior to the urinary bladder, thickening of the wall of the urinary bladder with an surrounding inflammatory changes visualized would recommend drainage of the abscess to prevent development of a colovesical fistula. Inflammatory changes surrounding the sigmoid colon demonstrate decrease in comparison to the prior study. Electronically Signed: Adriano Medina MD at 8:11 EDT ,
== END | disposition home or self-care (01) ==
LOC: CT 06:53
PROVIDERS: PCP Family Medicine; Referring Provider Family Medicine; Visit Provider Family Medicine
DX: K57.20 Diverticulitis of large intestine with perforation and abscess without bleeding (principal)
CPT/HCPCS: 74177; Q9967

== ENCOUNTER 2022-01-09 10:58 | Emergency (ER) | payer MEDICARE, OTHER, SELFPAY ==
[2022-01-09] VITALS (10 sets, daily range): BP systolic 125–153; BP diastolic 55–89; PULSE 87–112; RESP 13–28; TEMP 35.8–36.5; O2SAT 94–100; BMI 22.2
--- NOTE | 2022-01-09 11:27 | EX.ED.DYSGE1 ---
HPI History of Present Illness Chief Complaint: Abscess Narrative Narrative: Patient was seen here 2 weeks ago because of a diverticular abscess. She was having left lower quadrant pain at that time. It was found on an outpatient CT. We transferred her to a hospital in [place] because she was here on a Wednesday night and interventional radiology was not available that evening, nor all weekend. In [place] she was treated with IV antibiotics but she did not have any intervention or drainage. She was discharged on Augmentin, she is on her last day of it today. She had an outpatient repeat CT yesterday, the diverticular abscess is 3.8 cm and has enlarged. The patient has had no pain for the last week or so. She has no other symptoms except for some minor diarrhea loose stools not watery or bloody. No fevers, bright red blood per rectum, nausea or vomiting, or pain. [facility] Medical History (Updated 01/09/22 @ 13:24 by Lara Moss) Anxiety and depression CPAP (continuous positive airway pressure) dependence History of diverticulitis Non-smoker Sleep apnea Wears dentures Home Medications duloxetine 30 mg capsule,delayed release 1 cap PO DAILY 12/27/21 [History Last Taken Unknown] duloxetine 60 mg capsule,delayed release 1 cap PO DAILY 12/27/21 [History Last Taken Unknown] ropinirole 0.25 mg tablet 0.25 mg PO DAILY 12/27/21 [History Last Taken Unknown] Allergy/AdvReac Type Severity Reaction Status Date / Time acetaminophen [From Vicodin] Allergy Rash Verified 12/26/21 22:40 codeine Allergy Rash Verified 12/26/21 22:40 hydrocodone [From Vicodin] Allergy Rash Verified 12/26/21 22:40 Surgical History History of cholecystectomy Social History Smoking Status: Never smoker ROS ROS ED Constitutional Constitutional ED: Denies chills or fever(s) Eyes Eyes: Denies change in vision or diplopia ENT ENT ED: Denies rhinorrhea or sore throat Cardiovascular Cardiovascular: Denies chest pain or palpitations Respiratory/Chest Respiratory/Chest: Denies cough or dyspnea Gastrointestinal Gastrointestinal: Denies abdominal pain, diarrhea, nausea or vomiting Genitourinary Genitourinary ED: Denies dysuria or hematuria Musculoskeletal Musculoskeletal: Denies back pain or neck pain Integumentary Denies abscess or rash Neurologic Neurologic: Denies headache(s), paresthesias or weakness Psychiatric Psychiatric: Denies anxiety or suicidal thoughts EXAM Physical Exam Const Vital Signs: 01/09/22 10:59 01/09/22 12:33 01/09/22 13:25 Temperature 96.5 F L 97.7 F L Temperature Source Temporal Pulse Rate 112 H 88 Pulse Rate [1 (Initial Baseline)] Pulse Rate [10] Pulse Rate [11] Pulse Rate [12] Pulse Rate [13] Pulse Rate [2] Pulse Rate [3] Pulse Rate [4] Pulse Rate [5] Pulse Rate [6] Pulse Rate [7] Pulse Rate [8] Pulse Rate [9] Respiratory Rate 18 20 H Respiratory Rate [1 (Initial Baseline)] Respiratory Rate [10] Respiratory Rate [11] Respiratory Rate [12] Respiratory Rate [13] Respiratory Rate [2] Respiratory Rate [3] Respiratory Rate [4] Respiratory Rate [5] Respiratory Rate [6] Respiratory Rate [7] Respiratory Rate [8] Respiratory Rate [9] Respiratory Effort Normal Non-Labored Respiratory Pattern Normal Blood Pressure 128/89 H 142/65 H Blood Pressure [1 (Initial Baseline)] Blood Pressure [10] Blood Pressure [11] Blood Pressure [12] Blood Pressure [13] Blood Pressure [2] Blood Pressure [3] Blood Pressure [4] Blood Pressure [5] Blood Pressure [6] Blood Pressure [7] Blood Pressure [8] Blood Pressure [9] Blood Pressure Mean 102 Pulse Ox 99 97 Oxygen Delivery Method Room Air Room Air Oxygen Delivery Method [1 (Initial Baseline)] Oxygen Delivery Method [10] Oxygen Delivery Method [11] Oxygen Delivery Method [13] Oxygen Delivery Method [2] Oxygen Delivery Method [3] Oxygen Delivery Method [4] Oxygen Delivery Method [5] Oxygen Delivery Method [6] Oxygen Delivery Method [7] Oxygen Delivery Method [8] Oxygen Delivery Method [9] Oxygen Flow Rate (L/min) [1 (Initial Baseline)] Oxygen Flow Rate (L/min) [10] Oxygen Flow Rate (L/min) [11] Oxygen Flow Rate (L/min) [12] Oxygen Flow Rate (L/min) [13] Oxygen Flow Rate (L/min) [2] Oxygen Flow Rate (L/min) [3] Oxygen Flow Rate (L/min) [4] Oxygen Flow Rate (L/min) [5] Oxygen Flow Rate (L/min) [6] Oxygen Flow Rate (L/min) [7] Oxygen Flow Rate (L/min) [8] Oxygen Flow Rate (L/min) [9] 01/09/22 13:47 01/09/22 14:50 01/09/22 14:55 Temperature Temperature Source Pulse Rate Pulse Rate [1 (Initial Baseline)] 88 Pulse Rate [10] 90 Pulse Rate [11] 97 Pulse Rate [12] 88 Pulse Rate [13] 89 Pulse Rate [2] 87 Pulse Rate [3] 97 Pulse Rate [4] 94 Pulse Rate [5] 101 H Pulse Rate [6] 98 Pulse Rate [7] 96 Pulse Rate [8] 94 Pulse Rate [9] 90 Respiratory Rate Respiratory Rate [1 (Initial Baseline)] 15 Respiratory Rate [10] 21 H Respiratory Rate [11] 27 H Respiratory Rate [12] 17 Respiratory Rate [13] 28 H Respiratory Rate [2] 14 Respiratory Rate [3] 19 H Respiratory Rate [4] 13 Respiratory Rate [5] 18 Respiratory Rate [6] 15 Respiratory Rate [7] 17 Respiratory Rate [8] 17 Respiratory Rate [9] 15 Respiratory Effort Respiratory Pattern Blood Pressure Blood Pressure [1 (Initial Baseline)] 144/57 H Blood Pressure [10] 141/69 H Blood Pressure [11] 153/77 H Blood Pressure [12] 140/71 H Blood Pressure [13] 133/77 H Blood Pressure [2] 141/61 H Blood Pressure [3] 146/66 H Blood Pressure [4] 149/65 H Blood Pressure [5] 125/67 H Blood Pressure [6] 127/72 H Blood Pressure [7] 134/71 H Blood Pressure [8] 134/74 H Blood Pressure [9] 152/78 H Blood Pressure Mean Pulse Ox Oxygen Delivery Method Room Air Room Air Oxygen Delivery Method [1 (Initial Baseline)] Nasal Cannula Oxygen Delivery Method [10] Nasal Cannula Oxygen Delivery Method [11] Nasal Cannula Oxygen Delivery Method [13] Nasal Cannula Oxygen Delivery Method [2] Nasal Cannula Oxygen Delivery Method [3] Nasal Cannula Oxygen Delivery Method [4] Nasal Cannula Oxygen Delivery Method [5] Nasal Cannula Oxygen Delivery Method [6] Nasal Cannula Oxygen Delivery Method [7] Nasal Cannula Oxygen Delivery Method [8] Nasal Cannula Oxygen Delivery Method [9] Nasal Cannula Oxygen Flow Rate (L/min) [1 (Initial Baseline)] 2 Oxygen Flow Rate (L/min) [10] 2 Oxygen Flow Rate (L/min) [11] 2 Oxygen Flow Rate (L/min) [12] 2 Oxygen Flow Rate (L/min) [13] 2 Oxygen Flow Rate (L/min) [2] 2 Oxygen Flow Rate (L/min) [3] 2 Oxygen Flow Rate (L/min) [4] 2 Oxygen Flow Rate (L/min) [5] 2 Oxygen Flow Rate (L/min) [6] 2 Oxygen Flow Rate (L/min) [7] 2 Oxygen Flow Rate (L/min) [8] 2 Oxygen Flow Rate (L/min) [9] 2 01/09/22 15:00 01/09/22 15:05 01/09/22 15:20 Temperature Temperature Source Pulse Rate Pulse Rate [1 (Initial Baseline)] Pulse Rate [10] Pulse Rate [11] Pulse Rate [12] Pulse Rate [13] Pulse Rate [2] Pulse Rate [3] Pulse Rate [4] Pulse Rate [5] Pulse Rate [6] Pulse Rate [7] Pulse Rate [8] Pulse Rate [9] Respiratory Rate Respiratory Rate [1 (Initial Baseline)] Respiratory Rate [10] Respiratory Rate [11] Respiratory Rate [12] Respiratory Rate [13] Respiratory Rate [2] Respiratory Rate [3] Respiratory Rate [4] Respiratory Rate [5] Respiratory Rate [6] Respiratory Rate [7] Respiratory Rate [8] Respiratory Rate [9] Respiratory Effort Respiratory Pattern Blood Pressure Blood Pressure [1 (Initial Baseline)] Blood Pressure [10] Blood Pressure [11] Blood Pressure [12] Blood Pressure [13] Blood Pressure [2] Blood Pressure [3] Blood Pressure [4] Blood Pressure [5] Blood Pressure [6] Blood Pressure [7] Blood Pressure [8] Blood Pressure [9] Blood Pressure Mean Pulse Ox Oxygen Delivery Method Room Air Room Air Room Air Oxygen Delivery Method [1 (Initial Baseline)] Oxygen Delivery Method [10] Oxygen Delivery Method [11] Oxygen Delivery Method [13] Oxygen Delivery Method [2] Oxygen Delivery Method [3] Oxygen Delivery Method [4] Oxygen Delivery Method [5] Oxygen Delivery Method [6] Oxygen Delivery Method [7] Oxygen Delivery Method [8] Oxygen Delivery Method [9] Oxygen Flow Rate (L/min) [1 (Initial Baseline)] Oxygen Flow Rate (L/min) [10] Oxygen Flow Rate (L/min) [11] Oxygen Flow Rate (L/min) [12] Oxygen Flow Rate (L/min) [13] Oxygen Flow Rate (L/min) [2] Oxygen Flow Rate (L/min) [3] Oxygen Flow Rate (L/min) [4] Oxygen Flow Rate (L/min) [5] Oxygen Flow Rate (L/min) [6] Oxygen Flow Rate (L/min) [7] Oxygen Flow Rate (L/min) [8] Oxygen Flow Rate (L/min) [9] 01/09/22 15:35 01/09/22 15:49 Temperature Temperature Source Pulse Rate Pulse Rate [1 (Initial Baseline)] Pulse Rate [10] Pulse Rate [11] Pulse Rate [12] Pulse Rate [13] Pulse Rate [2] Pulse Rate [3] Pulse Rate [4] Pulse Rate [5] Pulse Rate [6] Pulse Rate [7] Pulse Rate [8] Pulse Rate [9] Respiratory Rate Respiratory Rate [1 (Initial Baseline)] Respiratory Rate [10] Respiratory Rate [11] Respiratory Rate [12] Respiratory Rate [13] Respiratory Rate [2] Respiratory Rate [3] Respiratory Rate [4] Respiratory Rate [5] Respiratory Rate [6] Respiratory Rate [7] Respiratory Rate [8] Respiratory Rate [9] Respiratory Effort Respiratory Pattern Blood Pressure Blood Pressure [1 (Initial Baseline)] Blood Pressure [10] Blood Pressure [11] Blood Pressure [12] Blood Pressure [13] Blood Pressure [2] Blood Pressure [3] Blood Pressure [4] Blood Pressure [5] Blood Pressure [6] Blood Pressure [7] Blood Pressure [8] Blood Pressure [9] Blood Pressure Mean Pulse Ox Oxygen Delivery Method Room Air Room Air Oxygen Delivery Method [1 (Initial Baseline)] Oxygen Delivery Method [10] Oxygen Delivery Method [11] Oxygen Delivery Method [13] Oxygen Delivery Method [2] Oxygen Delivery Method [3] Oxygen Delivery Method [4] Oxygen Delivery Method [5] Oxygen Delivery Method [6] Oxygen Delivery Method [7] Oxygen Delivery Method [8] Oxygen Delivery Method [9] Oxygen Flow Rate (L/min) [1 (Initial Baseline)] Oxygen Flow Rate (L/min) [10] Oxygen Flow Rate (L/min) [11] Oxygen Flow Rate (L/min) [12] Oxygen Flow Rate (L/min) [13] Oxygen Flow Rate (L/min) [2] Oxygen Flow Rate (L/min) [3] Oxygen Flow Rate (L/min) [4] Oxygen Flow Rate (L/min) [5] Oxygen Flow Rate (L/min) [6] Oxygen Flow Rate (L/min) [7] Oxygen Flow Rate (L/min) [8] Oxygen Flow Rate (L/min) [9] Positive well nourished and well developed General Appearance ED: well developed and NAD HEENT Reports moist mucous membranes normocephalic and atraumatic Eyes PERRL and EOMs intact bilaterally Neck full ROM and supple Resp normal respiratory effort and clear to auscultation bilaterally Cardio regular rate, regular rhythm and no murmurs Rate: Negative for tachycardic GI non-tender and non-distended Auscultation: normoactive bowel sounds Palpation: soft Back/Spine no CVA tenderness General Back: other FROM Extremity normal to inspection General Extremety ED: Negative for edema, pulses abnormal or tenderness General Extremity: Negative for edema or pulses abnormal Neuro oriented x3, CN's II-XII intact bilaterally and no sensory deficits noted Sensorium / Orientation: awake and alert Motor Exam: strength 5/5 throughout Skin no rashes or lesions noted and no wounds MDM MDM MDM Narrative Medical decision making narrative: Discussed with interventional radiology Dr. Medina, who agrees to intervene on this, states that given its size it is unlikely to get better with antibiotics and she needs to be drained. I discussed with Dr. Rivers, she suggest that we should not need to admit her for any reason after she gets drained, she would recommend discharging her on Flagyl and Bactrim, and she can follow-up with her or her PCP as she was which is fine. After the procedure, the patient was returned to the ED, she recovered uneventfully and is doing well and ready to go home, discharged with the antibiotic prescriptions. Lab Data Attestation: I reviewed the patient's lab results. Labs: Laboratory Results - last 24 hr 01/09/22 01/09/22 01/09/22 12:20 12:20 13:15 WBC 5.4 RBC 4.61 Hgb 12.6 Hct 40.7 MCV 88.3 MCH 27.3 MCHC 31.0 L RDW Std Deviation 43.9 RDW Coeff of Joshua 13.7 Plt Count 349 MPV 11.2 Immature Gran % (Auto) 1.500 H Neut % (Auto) 40.2 L Lymph % (Auto) 25.6 [place] % (Auto) 31.4 H Eos % (Auto) 0.9 Baso % (Auto) 0.4 Absolute Neuts (auto) 2.2 Absolute Lymphs (auto) 1.37 Nucleated RBC % 0 Differential Comment COMMENT PT 13.4 INR 1.1 APTT 29.4 Sodium 136 Potassium 4.0 Chloride 103 Carbon Dioxide 28.0 Anion Gap 5 BUN 6 L Creatinine 0.74 Estim Creat Clear Calc 35.99 Est GFR (MDRD) Af Amer 100 Est GFR (MDRD) Non-Af 82 BUN/Creatinine Ratio 8.2 L Glucose 93 Calcium 9.4 Radiography Diagnostic Testing: Clinical Impression(s) from Imaging Studies Abscess Drainage 01/09/22 13:40 IMPRESSION: Percutaneous abscess drainage, 7 cc of pus aspirated and sent to lab for analysis. CT-guided percutaneous placement of an 8 Persian all-purpose drainage catheter within the abscess cavity and attached to LYDIA drainage. Patient was given instructions to flush with 5 cc of saline every 8 hours and follow-up with referring physician. Electronically Signed: Adriano Medina MD at 15:11 EDT Reading Location ID and State: [address] [place] [address] Tel , Service support , Discharge Plan Triage Chief Complaint: Abscess ED Provider: Oscar Grijalva Dx/Rx/DC Orders Clinical Impression: Colonic diverticular abscess, Failure of outpatient treatment Instructions: Discharge Instructions Caring ..., RAD RN Abscess Drainage, RAD RN Procedural Sedation Prescriptions: No Action ropinirole 0.25 mg tablet 0.25 mg PO DAILY Label Comments: take 1 tablet by mouth once daily at bedtime duloxetine 30 mg capsule,delayed release(DR/EC) 1 cap PO DAILY Label Comments: take 1 capsule by mouth once daily with 60 milligram dose duloxetine 60 mg capsule,delayed release(DR/EC) 1 cap PO DAILY Label Comments: take 1 capsule by mouth once daily Primary Care Provider: Chapo Marshall Referrals: Chapo Marshall MD [Primary Care Provider] - (next week, call for appt) Disposition Disposition: Home, Self Care
--- NOTE | 2022-01-09 11:49 | NURSING ---
CALLED DR LIN, SHE IS BUSY BUT WILL CALL BACK
[2022-01-09 12:41] LABS: Absolute Lymphocyte Count 1.37 X10^3/uL (0.83-4.51); Absolute Neutrophil Count 2.2 X10^3/uL (2.0-7.7); Anion Gap 5 (5-15); BUN 6 mg/dL (7-18); BUN/Creat Ratio 8.2 RATIO (10-20); Basophil# 0.02 X10^3/uL; Basophil% 0.4 % (0-1); Calcium,Total 9.4 mg/dL (8.5-10.1); Chloride 103 mmol/L (98-107); Creatinine, Serum 0.74 mg/dL (0.55-1.02); EST Glomerular Filtration Rate 82 mL/min (>60); Eosinophil# 0.05 X10^3/uL; Eosinophils% 0.9 % (0-5); Est Glom Filt Rate - Afr Amer 100 mL/min (>60); Estimated Creatinine Clearance 35.99 ml/min; Glucose 93 mg/dL (74-106); Hematocrit 40.7 % (37-47); Hemoglobin 12.6 g/dL (12.0-15.0); Lymphocyte # 1.37 X10^3/ul (0.83-4.51); Lymphocyte % 25.6 % (19-41); Mean Corpuscular Hgb 27.3 pg (27.0-32.0); Mean Corpuscular Volume 88.3 fL (81-99); Mean Platelet Vol. 11.2 fl (6.2-12.0); Monocyte# 1.68 X10^3/uL; Monocyte% 31.4 % (0-10); NRBC Flagged by Analyzer 0 % (0-5); Neutrophil # 2.15 X10^3/uL (2.7-7.7); Neutrophil % 40.2 % (47-70); POSITIVE DIFFERENTIAL YES; POSITIVE MORPHOLOGY YES; Platelet Count 349 K/mm3 (150-450); RBC Distribution Width CV 13.7 % (11.6-14.6); RBC Distribution Width SD 43.9 fl (35.1-43.9); Red Blood Count 4.61 M/mm3 (4.2-5.4); Sodium Level 136 mmol/L (136-145); White Blood Count 5.4 K/mm3 (4.4-11.0)
[2022-01-09 12:42] LABS: Differential Indicated SCAN CRITERIA MET
[2022-01-09 13:31] LABS: International Normalized Ratio 1.1; Prothrombin Time (Protime)PT. 13.4 SECONDS (11.7-14.9)
[2022-01-09 13:32] LABS: Partial Thromboplast Time 29.4 Seconds (24.1-36.2)
--- NOTE | 2022-01-09 13:40 | CT_ITS ---
CLINICAL HISTORY: Female, 71 years old female with a left pelvic diverticular abscess. PROCEDURE: Percutaneous abscess drainage and catheter placement. DATE OF EXAMINATION: 01/09/2022 PHYSICIAN: Humphrey Medina MD RADIATION DOSAGE (If Supplied By Facility): CTDIvol = ( 854.43 ) mGy, DLP = ( 1208.25 ) mGycm CONSENT: The risks, benefits and alternatives to the procedure were explained to the patient, and the patient agreed to the procedure and signed the consent. SEDATION: Conscious sedation VERSED 2 mg and FENTANYL 100 mcg intravenous. SEDATION TIME: Start 13:45:00 PM and End 14:42:00 PM. STERILE BARRIER TECHNIQUE: The following sterile barrier precautions were used during the procedure: hand hygiene; use of 2% chlorhexidine aseptic; use of a cap, mask, sterile gown, sterile gloves, sterile full body drape, and a large sterile sheet. PROCEDURE/TECHNIQUE: All elements of maximal sterile barrier technique followed, including US elements as applicable. The risks, benefits, and alternatives to the procedure were explained to the patient, and the patient agreed to the procedure and signed a consent form for the procedure. A timeout was performed to confirm the patient''s identity, the type of procedure, to be performed and the site of entry. The patient was positioned supine on the CT table and a CT scan of the lower abdomen and pelvis with then performed, the left pelvic abscess collection was identified. Access site into the abscess site was marked on the patient''s skin after which the patient was prepped and draped in the usual sterile manner. LIDOCAINE 1% local anesthesia was then applied to the skin and subcutaneous tissues and a small skin hayder was made. A 21-gauge 15 cm needle was inserted under CT guidance into the abscess collection, 7 cc of pus were aspirated, a 0.018 wire was then inserted through the needle and coiled within the abscess collection, the introducer needle was then exchanged for a 6.2 German introducer sheath over the microwire. The microwire was then exchanged for a 0.035 wire which was inserted through the sheath and coiled within the abscess collection, which he swallowed then removed and an 8 German all purpose drainage catheter was inserted over the wire into the collection, after confirmation of positioning the catheter was locked in position. Saline lavage of the abscess cavity was performed and yielded bloody exudate. The catheter was then secured to the skin, attached to LYDIA drainage and sterile dressing was applied. The patient tolerated the procedure with no immediate complications and was transferred back to the floor in stable condition. CT/Abscess/Fistula/Sinus Tract IMPRESSION: Percutaneous abscess drainage, 7 cc of pus aspirated and sent to lab for analysis. CT-guided percutaneous placement of an 8 German all-purpose drainage catheter within the abscess cavity and attached to LYDIA drainage. Patient was given instructions to flush with 5 cc of saline every 8 hours and follow-up with referring physician. Electronically Signed: Adriano Medina MD at 15:11 EDT ,
[2022-01-09] MEDS: Midazolam 2 MG/2 ML Syringe IV ×2 (13:44→14:00)
[2022-01-09] MEDS: fentaNYL 100 MCG/2 ML Ampul IV ×2 (13:45→14:00)
[2022-01-09] MEDS: 0.9% Normal Saline 250 ML IV.SOLN. IV (13:45)
[2022-01-09] MEDS: Lidocaine 2% (10 ml mdv) 10 ML Vial (13:45)
[2022-01-09] MEDS: Lidocaine 2% (10 ml mdv) 10 ML Vial INFILT (14:00)
--- NOTE | 2022-01-09 18:12 | ED.RN ---
THIS RN CALLED PT TO LET HER KNOW THAT THERE WAS AN ERROR IN THE E-PRESCRIPTION AND HER MEDICATIONS ARE CURRENTLY BEING FILLED BY [facility].
== END 2022-01-09 17:45 | disposition home or self-care (01) ==
PROVIDERS: Emergency Provider Emergency Medicine; PCP Family Medicine; Visit Provider Emergency Medicine
DX: K65.1 Peritoneal abscess (principal); G47.30 Sleep apnea, unspecified; F41.9 Anxiety disorder, unspecified; F32.A Depression, unspecified; Z79.899 Other long term (current) drug therapy
CPT/HCPCS: 49406; 20501; 77012; 80048; 85025; 85610; 85730; 87070; 87075; 87077; 87186; 87205; 96374; 99156; 99157; 99282; J7050; A4216

== ENCOUNTER → 2022-02-03 | Outpatient (CLI) | payer MEDICARE, OTHER, SELFPAY ==
[2022-02-03 10:38] LABS: Mucous, Urine 0 SEEN /hpf (<or=2+)
[2022-02-03 10:57] LABS: Color, Urine Straw (Yellow); Glucose, Dipstick Normal (Normal); Ketone-Dipstick Negative (Negative); Leukocyte Esterase-Dipstick 500 /ul (Negative); Nitrite-Dipstick Negative (Negative); Occult Blood-Urine 250 /ul (Negative); Protein-Dipstick 30 mg/dl (Negative); Urine Bilirubin Dipstick Negative (Negative); Urine Clarity Clear (Clear); Urine Urobilinogen Normal (Normal); Urine pH 6.5 (5.0 - 8.0)
[2022-02-03 11:31] LABS: Bacteria 2+ /hpf (None Seen); Red Blood Cells-Urine 5-10 SEEN /hpf (0-5); Squamous Epithelial Cells - UA 0-5 SEEN /hpf (5-10); White Blood Cells 25-50 SEEN /hpf (0-5)
== END | disposition home or self-care (01) ==
LOC: LABSPEC 10:30
PROVIDERS: PCP Family Medicine; Referring Provider Physician Assistant; Visit Provider Physician Assistant
DX: R30.9 Painful micturition, unspecified (principal)
CPT/HCPCS: 81001; 87077; 87086; 87088; 87186

== ENCOUNTER → 2022-02-17 | Outpatient (CLI) | payer MEDICARE, OTHER, SELFPAY ==
[2022-02-17 15:22] LABS: Absolute Lymphocyte Count 1.32 X10^3/uL (0.83-4.51); Absolute Neutrophil Count 1.5 X10^3/uL (2.0-7.7); Basophil# 0.01 X10^3/uL; Basophil% 0.2 % (0-1); Eosinophil# 0.05 X10^3/uL; Eosinophils% 1.2 % (0-5); Hematocrit 36.4 % (37-47); Lymphocyte # 1.32 X10^3/ul (0.83-4.51); Lymphocyte % 31.4 % (19-41); Mean Corp Hgb Conc 30.2 g/dL (32-36); Mean Corpuscular Hgb 27.4 pg (27.0-32.0); Mean Corpuscular Volume 90.8 fL (81-99); Mean Platelet Vol. 11.5 fl (6.2-12.0); Monocyte# 1.27 X10^3/uL; Monocyte% 30.2 % (0-10); NRBC Flagged by Analyzer 0 % (0-5); Neutrophil % 35.6 % (47-70); POSITIVE MORPHOLOGY YES; Platelet Count 240 K/mm3 (150-450); RBC Distribution Width CV 14.7 % (11.6-14.6); RBC Distribution Width SD 49.4 fl (35.1-43.9); Red Blood Count 4.01 M/mm3 (4.2-5.4); White Blood Count 4.2 K/mm3 (4.4-11.0)
[2022-02-17 15:26] LABS: Differential Indicated SCAN CRITERIA MET
[2022-02-17 15:47] LABS: ALB/GLOB Ratio 0.9 RATIO (0.9-2.4); AST(SGOT) 13 U/L (15-37); Alanine Aminotransfer ALT/SGPT 18 U/L (13-56); Albumin, Serum 3.5 g/dL (3.2-5.0); Alkaline Phosphatase 74 U/L (45-117); Anion Gap 8 (5-15); BUN 9 mg/dL (7-18); BUN/Creat Ratio 12.6 RATIO (10-20); Calcium,Total 8.9 mg/dL (8.5-10.1); Chloride 105 mmol/L (98-107); Cholesterol 208 mg/dL (200); Creatinine, Serum 0.72 mg/dL (0.55-1.02); Differential Comment SCANNED; EST Glomerular Filtration Rate 85 mL/min (>60); Est Glom Filt Rate - Afr Amer 103 mL/min (>60); Glucose 95 mg/dL (74-106); High Density Lipoprotein 52 mg/dL; Potassium 4.1 mmol/L (3.5-5.1); Protein, Total 7.5 g/dL (6.4-8.2); Sodium Level 138 mmol/L (136-145); Triglycerides 151 mg/dL; Very Low Density Lipoprotein 30 mg/dL (5-40)
[2022-02-18 11:10] LABS: Ferritin 36 ng/mL (8-252); Iron 35 ug/dL (50-170); Iron Binding Capacity,Total 334 ug/dL (250-450); PERCENT IRON SATURATION 10.5 % (15.0-55.0); Vitamin B12 334 pg/mL (211-911)
[2022-02-19 09:46] LABS: Transferrin 273 mg/dL (192-364)
== END | disposition home or self-care (01) ==
LOC: MFPLAB 11:41
PROVIDERS: PCP Family Medicine; Visit Provider Family Medicine
DX: D64.9 Anemia, unspecified (principal); E78.5 Hyperlipidemia, unspecified
CPT/HCPCS: 36415; 80053; 80061; 82607; 82728; 83540; 83550; 84466; 85025

== ENCOUNTER → 2022-03-16 | Outpatient (CLI) | payer MEDICARE, OTHER, SELFPAY ==
[2022-03-16 16:02] LABS: Ferritin 36 ng/mL (8-252); Iron 26 ug/dL (50-170); Iron Binding Capacity,Total 337 ug/dL (250-450)
[2022-03-16 16:05] LABS: Vitamin B12 293 pg/mL (211-911)
[2022-03-18 10:34] LABS: Transferrin 264 mg/dL (192-364)
== END | disposition home or self-care (01) ==
LOC: MFPLAB 11:20
PROVIDERS: PCP Family Medicine; Visit Provider Family Medicine
DX: D64.9 Anemia, unspecified (principal)
CPT/HCPCS: 36415; 82607; 82728; 83540; 83550; 84466

== ENCOUNTER → 2022-04-09 | Outpatient (CLI) | payer MEDICARE, OTHER, SELFPAY ==
--- NOTE | 2022-04-09 | CYSPIN_PTH ---
PATIENT: KUSH CHATMAN LOC: [facility] U#:[id number] AGE/SX: 72/F ROOM: RE04/09/[address]: Dr. Chapo Marshall MD : [id number] BED: DIS: 04/09/2022 SPEC #: [id number] RECD: 04/09/22 10:59 STATUS: JENNIFER JONES #: [id number] HERNAN: 04/09/22 00:[address]: Chapo Marshall DEPT: CYTOLOGY RECD BY: Harriett Thompson Tissues: Urine Procedures: Pap Stain (control) Special Stain Group II Cytospin Fluid HEADER OPERATION: Not noted PRE-OP DIAGNOSIS: Hematuria TISSUE SUBMITTED: Urine for cytology DIAGNOSIS CYTOLOGY Urine for cytology (cytospin): Negative for high-grade urothelial carcinoma (NHGUC), (Alisa System Category II). See comment. AM:dotty 04/10/2022 COMMENT The Alisa System for urine cytology diagnostic categorization was used in the evaluation of this case. CYTOLOGY STUDY Slides are reviewed. CYTOLOGY GROSS Received is 50 ml of light yellow cloudy fluid labeled with the patient's name and and designated per the requisition as urine. Submitted for cytology preparation. / dotty 04/09/2022 TC:5 CPT: 22070
[2022-04-09 08:59] LABS: Cytology, Body Fluid / CSF SEE PATHOLOGY REPORT
== END | disposition home or self-care (01) ==
LOC: LABSPEC 08:26
PROVIDERS: PCP Family Medicine; Referring Provider Family Medicine; Visit Provider Family Medicine
DX: R31.9 Hematuria, unspecified (principal); N39.0 Urinary tract infection, site not specified
CPT/HCPCS: 87086; 87088; 88108; 88313

== ENCOUNTER → 2022-04-16 | Outpatient (CLI) | payer MEDICARE, OTHER, SELFPAY ==
--- NOTE | 2022-04-16 12:27 | US_ITS ---
STUDY: ULTRASOUND - URINARY BLADDER REASON FOR EXAM: Female, 72 years old. Incomplete bladder emptying TECHNIQUE: Ultrasound evaluation of the urinary bladder was performed with real-time and static coppola-scale imaging. COMPARISON: None. FINDINGS: There is no right UVJ calculus. There is a visualized right ureteral jet. There is no left UVJ calculus. There is a non-visualization of a left ureteral jet. The distended volume of the urinary bladder is 221 ml. The empty volume of the urinary bladder is 12.2 ml. The bladder wall is within normal limits. The bladder wall measures 3 mm. There is no demonstrated bladder wall mass lesion. There are no demonstrated bladder calculi. US/Post Void Residual Bladder IMPRESSION: No significant post void residual is seen. Electronically Signed: Noe Capps MD at 14:41 EST ,
== END | disposition home or self-care (01) ==
LOC: US 12:26
PROVIDERS: PCP Family Medicine; Referring Provider Family Medicine; Visit Provider Family Medicine
DX: R33.9 Retention of urine, unspecified (principal)
CPT/HCPCS: 51798

== ENCOUNTER → 2022-05-15 | Outpatient (CLI) | payer MEDICARE, OTHER, SELFPAY ==
[2022-05-15 12:11] LABS: Absolute Lymphocyte Count 1.45 X10^3/uL (0.83-4.51); Absolute Neutrophil Count 1.5 X10^3/uL (2.0-7.7); Basophil# 0.01 X10^3/uL; Basophil% 0.2 % (0-1); Eosinophil# 0.06 X10^3/uL; Eosinophils% 1.4 % (0-5); Hemoglobin 12.5 g/dL (12.0-15.0); Lymphocyte # 1.45 X10^3/ul (0.83-4.51); Mean Corp Hgb Conc 30.5 g/dL (32-36); Mean Corpuscular Hgb 27.1 pg (27.0-32.0); Mean Corpuscular Volume 88.7 fL (81-99); Mean Platelet Vol. 11.1 fl (6.2-12.0); Monocyte# 1.22 X10^3/uL; Monocyte% 28.6 % (0-10); NRBC Flagged by Analyzer 0 % (0-5); Neutrophil # 1.47 X10^3/uL (2.7-7.7); Neutrophil % 34.4 % (47-70); POSITIVE MORPHOLOGY YES; Platelet Count 253 K/mm3 (150-450); RBC Distribution Width CV 13.2 % (11.6-14.6); RBC Distribution Width SD 42.8 fl (35.1-43.9); Red Blood Count 4.62 M/mm3 (4.2-5.4); White Blood Count 4.3 K/mm3 (4.4-11.0)
[2022-05-15 12:13] LABS: Differential Indicated SCAN CRITERIA MET
[2022-05-15 12:39] LABS: ALB/GLOB Ratio 1.1 RATIO (0.9-2.4); AST(SGOT) 12 U/L (15-37); Alanine Aminotransfer ALT/SGPT 15 U/L (13-56); Albumin, Serum 4.2 g/dL (3.2-5.0); Alkaline Phosphatase 61 U/L (45-117); Anion Gap 5 (5-15); BUN 7 mg/dL (7-18); BUN/Creat Ratio 10.4 RATIO (10-20); Calcium,Total 9.3 mg/dL (8.5-10.1); Chloride 101 mmol/L (98-107); Cholesterol 236 mg/dL (200); Creatinine, Serum 0.67 mg/dL (0.55-1.02); EST Glomerular Filtration Rate 91 mL/min (>60); Est Glom Filt Rate - Afr Amer 110 mL/min (>60); Ferritin 59 ng/mL (8-252); Globulin 3.9 g/dL (2.2-4.2); Glucose 86 mg/dL (74-106); High Density Lipoprotein 63 mg/dL; Iron 55 ug/dL (50-170); Iron Binding Capacity,Total 382 ug/dL (250-450); Potassium 3.8 mmol/L (3.5-5.1); Protein, Total 8.1 g/dL (6.4-8.2); Sodium Level 137 mmol/L (136-145); Triglycerides 189 mg/dL; Very Low Density Lipoprotein 38 mg/dL (5-40)
[2022-05-15 12:59] LABS: Atypical Lymphocyte 1+ %; Reactive Lymphocyte 1+
== END | disposition home or self-care (01) ==
LOC: MFPLAB 10:17
PROVIDERS: PCP Family Medicine; Referring Provider Family Medicine; Visit Provider Family Medicine
DX: E78.5 Hyperlipidemia, unspecified (principal); D50.9 Iron deficiency anemia, unspecified
CPT/HCPCS: 36415; 80053; 80061; 82728; 83540; 83550; 85025

== ENCOUNTER 2022-07-27 12:00 | Outpatient (RCR) | payer MEDICARE, OTHER, SELFPAY ==
--- NOTE | 2022-05-21 14:03 | HP.PTEVAL_ITS ---
Patient's Visit Information KUSH CHATMAN is a 72 year old F referred to Physical Therapy by Dr. Bianak Licona MD with a diagnosis of OVERACTIVE BLADDER, MIXED INCONTINENCE AND NOCTURIA. Date of Evaluation: 05/21/22 Physical Therapist: Molly eKlly, PT, Cert MDT - Visit Plan Frequency: 1x/Week Duration: 8-12 WKS Plan: PELVIC FLOOR STRENGTHENING. URINARY RETENTION, URGE INCONTINENCE AND FREQUENCY EDUCATION. HEALTHY BLADDER HABBIT EDUCATION. TRAINING IN COORDINATION OF PELVIC FLOOR MUSCULATURE WITH HIP AND CORE (TRANSVERSE ABDOMINUS) MUSCULATURE. POSTURE CORRECTION/STRENGTHENING. CORE STRENGTHENING. JIM LE ROM, STRETCHING AND STRENGTHENING. TRAINING IN ABDOMINAL CAVITY PRESSURE MGMT WITH ADL'S. - Subjective Work/Leisure: RETIRED. WALKS DOG A LOT. SOCIAL: LIVES ALONE. Present symptoms: WEAK PELVIC FLOOR AND INCONTINENCE. PATIENT REPORTS SHE ISN'T REALLY HAVING ANY PAIN BUT SHE DOES GET AN INTERMITTENT ODD FEELING IN LOWER ABDOMEN. FEELS LIKE HER BLADDER IS FULL ALL THE TIME AND HAS STARTED LEAKING SINCE HAVING UTI. Present since: APPROX JAN 2022. Is it getting better, worse or staying the same: STAYING THE SAME OR MAYBE GETTING A LITTLE BETTER. Commenced as a result of: UTI. SX TO DRAIN abscess IN COLON DECEMBER 2021 THEN UTI FOLLOWED. Symptoms at onset: UTI. Worse: PEPSI. Better: DRINKING LESS FLUID IN GENERAL BUT SHE STATES SHE KNOW THIS ISN'T GOOD FOR HER. Disturbed sleep: YES. GETTING UP TO URINATE 3-5 TIMES A NIGHT. Previous history/Previous treatment: UNREMARKABLE. NO LOW BACK OR HIP SURGERY OR INJECTIONS. Treatment this episode: ANTIBIOTICS AND LIST OF FOODS TO AVOID. Coughing/sneezing/straining: POSITIVE - FAIRLY NEW PROBLEM. Gait: NORMAL. Bowel Incontinence: YES - PATIENT REPORTS DR. ENAMORADO AND DR. LICONA ARE AWARE. HAS BEEN GOING ON SINCE UTI ONLY. THIS PT INSTRUCTED PATIENT TO GO TO THE ED IF ANY SUDDEN LOSS OF CONTROL OF BOWEL/BLADDER TO RULE OUT CAUDA EQUINA SYNDROME AND PATIENT AGREEABLE. Accidents: NO. Unexplained weight loss: NO. Imaging: NONE SINCE abscess SX. PMH/Recent major surgery: Melanoma R SHLD REMOVED APR 2022 AT [facility]. DEPRESSION. OTHER: WEARING MENSTRAL CYCLE PADS IF GOING OUT IN PUBLIC (THIS PT RECOMMENDED URINARY INCONTINENCE PROTECTION VS MENSTRAL PADS AND PATIENT AGREEABLE). - Objective Sitting/Standing Posture: FAIR. REDUCED LUMBAR LORDOSIS BUT NO RELEVANT LATERAL SHIFT. Other Observations: INDEP GAIT AND TRANSFERS. Sensory deficit: JIM LE LIGHT TOUCH SENSATION IS GROSSLY INTACT AND SYMMETRICAL. ROM deficit: TIGHT JIM HS'S LEFT > RIGHT AND MILD JIM HIP ADDUCTOR TIGHTNESS. Motor deficit: JIM LE'S GROSSLY 5/5 WITH MMT'ING EXCEPT HIPS 4/5. 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 PATIENT AGREEABLE TO MANUAL VAGINAL PELVIC FLOOR ASSESSMENT NEEDED IN THE FUTURE. Reflexes: 2/3 JIM LE DTR'S. Lumbar mvmt loss: flex - MOD. ext - AIDAN. R SG - AIDAN. L SG - AIDAN. Core strength: POOR. FUNCTIONAL SCREEN: Incontinence Impact Questionnaire Score: 17. Urogenital Distress Inventory Score: 14. TREATMENT: INITIATED HEP WITH INSTRUCTION IN QUICK FLICK KEGELS X 8, 3 TIMES A DAY IN SITTING OR SUPINE. CUEING GIVEN TO AVOID COMPENSATIONG IN ABS AND GLUTS. - Goals Goal 1:: DECREASE URINARY LEAKAGE EPISODES TO ONE OR LESS PER DAY Goal Time Frame: 8-12 Weeks Goal 2:: PATIENT WILL SUCCESSFULLY DELAY VOIDING FOR 10 MINUTES WHEN URGENCY OCCURS Goal Time Frame: 4-6 Weeks Goal 3:: PATIENT WILL DEMONSTRATE 10 CONSISTENT AND CONSECUTIVE 10 SECOND PELVIC FLOOR MUSCLE CONTRACTIONS TO DEMONSTRATE IMPROVED PELVIC FLOOR ENDURANCE. Goal Time Frame: 8-12 Weeks Goal 4:: DEVELOP HEALTHY FLUID INTAKE HABITS WITH FLUID INTAKE OF ? BODY WEIGHT IN OUNCES PER DAY AND 2/3 BEING WATER. Goal Time Frame: 2-4 Weeks Goal 5:: NORMALIZE VOIDING FREQUENCEY TO EVERY 3-4 HOURS. Goal Time Frame: 2-4 Weeks Goal 6:: PATIENT WILL BE INDEP WITH A HEP/HOME INSTRUCTIONS FOR CONTINUED IMPROVEMENT ONCE FORMAL PHYSICAL THERAPY CONCLUDES. Goal Time Frame: 8-12 Weeks - Anticipated Interventions Patient/Client Instruction: Educate patient on: Condition, Plan of Care, Risk Factors For the Purpose of:: To improve self management Therapeutic Exercise to Include: Strength training, Postural training, Flexibilty training, Neuromotor development For the Purpose of:: To improve muscle performance and motor function, To increase tolerance to activity/condition/position, To improve ability of physical actions for home/community/work/leisure Manual Therapy Techniques to Include: Other Comment: BIOFEEDBACK/MUSCLE TRAINING For the Purpose of:: To improve muscle performance and motor function Thank you for the opportunity to evaluate your patient. For Medicare and Medicare HMO plans, please review the plan of care and approve it. It will need to be FAXED BACK to us at [phone] for Medicare purposes. For Medicare only, by signing this I certify the plan of care. Please let me know if there are questions or concerns regarding this plan of care. Physician Signature: Date:
--- NOTE | 2022-07-27 12:15 | HP.PTDCSUM_ITS ---
It has been my pleasure to treat KUSH CHATMAN referred by Dr. Bianka Licona MD, with the diagnosis of OVERACTIVE BLADDER, MIXED INCONTINENCE AND NOCTURIA for a total of 9 visit(s). Discharge Date: Please see the following information for a summary of their discharge status. Subjective: EVERYTHING IS WORKING SUPER DUPER. PATIENT REPORTS SHE IS EVEN DOING BETTER THAN SHE EXPECTED. ONLY GETTING UP ABOUT ONCE A NIGHT. NOT HAVING ANY LEAKING. NO BACK OR PELVIC PAIN. NO NERVOUS PEEING NOW. PATIENT REPORTS SHE REALLY LOVES THE EX PROGRAM. % Improvement: 100 Objective/Function: PATIENT WAS SEEN TODAY FOR RE-ASSESSMENT OF PROGRESS TOWARD THE SET PT GOALS AND THE NEED FOR FURTHER PHYSICAL THERAPY VS READINESS FOR DISCHARGE. ALL GOALS APPEAR TO HAVE BEEN MET AND PATIENT IS APPROPRIATE FOR DISCHARGE TO [facility]. PATIENT IS AGREEABLE. FUNCTIONAL SCREEN: Incontinence Impact Questionnaire Score: 0. Urogenital Distress Inventory Score: 0 Goal 1:: DECREASE URINARY LEAKAGE EPISODES TO ONE OR LESS PER DAY Goal Progress: Goal Met Goal 2:: PATIENT WILL SUCCESSFULLY DELAY VOIDING FOR 10 MINUTES WHEN URGENCY OCCURS Goal Progress: Goal Met Goal 3:: PATIENT WILL DEMONSTRATE 10 CONSISTENT AND CONSECUTIVE 10 SECOND PELVIC FLOOR MUSCLE CONTRACTIONS TO DEMONSTRATE IMPROVED PELVIC FLOOR ENDURANCE. Goal Progress: Goal Met Goal 4:: DEVELOP HEALTHY FLUID INTAKE HABITS WITH FLUID INTAKE OF ? BODY WEIGHT IN OUNCES PER DAY AND 2/3 BEING WATER. Goal Progress: Goal Met Goal 5:: NORMALIZE VOIDING FREQUENCEY TO EVERY 3-4 HOURS. Goal Progress: Goal Met Goal 6:: PATIENT WILL BE INDEP WITH A HEP/HOME INSTRUCTIONS FOR CONTINUED IMPROVEMENT ONCE FORMAL PHYSICAL THERAPY CONCLUDES. Goal Progress: Goal Met Plan: D/C. PATIENT AGREEABLE. If there are questions or concerns regarding this patient's physical therapy, please feel free to call me at [phone]. Thank you for the referral of this patient. Sincerely, Molly Kelly, PT, Cert MDT
== END 2022-07-27 13:38 | disposition home or self-care (01) ==
LOC: PT 12:00
PROVIDERS: PCP Family Medicine; Referring Provider Urology; Visit Provider Urology
DX: N39.46 Mixed incontinence (principal); N32.81 Overactive bladder
CPT/HCPCS: 97162; 97164; 97530

== ENCOUNTER → 2022-08-25 | Outpatient (CLI) | payer MEDICARE, OTHER, SELFPAY ==
--- NOTE | 2022-08-25 10:08 | BI_ITS ---
MAMMOGRAPHY - BILATERAL SCREENING REASON FOR EXAM: Female, 72 years old. Routine annual screening examination. PERTINENT HISTORY: Non-contributory. TECHNIQUE: Digital bilateral breast murray (3D mammographic acquisition) in the CC and MLO projections. 2-D mediolateral oblique (MLO) and craniocaudad (CC) views of both breasts were obtained. CAD: Full Field Digital Mammography with Computer Added Detection was performed. COMPARISON: Comparison is made with prior study dated July 29, 2021 and February 22, 2020. FINDINGS: Breast Composition: There are scattered areas of fibroglandular density. There are no dominant masses or suspicious calcifications. Stable small benign-appearing bilateral axillary lymph nodes. No other significant abnormalities are identified. There has been no significant change since the prior study. BI/SCRN MAMM (CAD)W/MURRAY BILAT IMPRESSION: Stable bilateral screening mammogram. Yearly follow-up mammogram recommended. (A) ASSESSMENT CATEGORY: BIRADS Category 2: Benign. A letter regarding these results will be sent to the patient by the facility within 30 days. Approximately 10% of breast cancers are not detected by mammography. A normal mammogram should not delay biopsy of a clinically suspicious abnormality. [id number] Electronically Signed: Noe Capps MD at 10:43 EDT ,
== END | disposition home or self-care (01) ==
LOC: OPBI 10:06
PROVIDERS: PCP Family Medicine; Referring Provider Nurse Practitioner Family; Visit Provider Nurse Practitioner Family
DX: Z12.31 Encounter for screening mammogram for malignant neoplasm of breast (principal)
CPT/HCPCS: 77063; 77067

== ENCOUNTER → 2022-09-15 | Outpatient (CLI) | payer MEDICARE, OTHER, SELFPAY ==
[2022-09-15 12:36] LABS: Absolute Neutrophil Count 0.7 X10^3/uL (2.0-7.7); Basophil# 0.02 X10^3/uL; Basophil% 0.7 % (0-1); Eosinophil# 0.17 X10^3/uL; Eosinophils% 5.8 % (0-5); Hematocrit 37.3 % (37-47); Hemoglobin 11.5 g/dL (12.0-15.0); Lymphocyte % 34.4 % (19-41); Mean Corp Hgb Conc 30.8 g/dL (32-36); Mean Corpuscular Hgb 28.2 pg (27.0-32.0); Mean Corpuscular Volume 91.4 fL (81-99); Mean Platelet Vol. 11.7 fl (6.2-12.0); Monocyte# 1.06 X10^3/uL; Monocyte% 36.4 % (0-10); NRBC Flagged by Analyzer 0 % (0-5); Neutrophil # 0.66 X10^3/uL (2.7-7.7); Neutrophil % 22.7 % (47-70); POSITIVE DIFFERENTIAL YES; POSITIVE MORPHOLOGY YES; Platelet Count 198 K/mm3 (150-450); RBC Distribution Width CV 12.9 % (11.6-14.6); RBC Distribution Width SD 43.2 fl (35.1-43.9); Red Blood Count 4.08 M/mm3 (4.2-5.4); White Blood Count 2.9 K/mm3 (4.4-11.0)
[2022-09-15 12:46] LABS: Differential Indicated SCAN CRITERIA MET
[2022-09-15 13:03] LABS: ALB/GLOB Ratio 1.1 RATIO (0.9-2.4); AST(SGOT) 15 U/L (15-37); Alanine Aminotransfer ALT/SGPT 17 U/L (13-56); Albumin, Serum 3.7 g/dL (3.2-5.0); Alkaline Phosphatase 51 U/L (45-117); Anion Gap 1 (5-15); BUN 9 mg/dL (7-18); BUN/Creat Ratio 12.6 RATIO (10-20); Calcium,Total 8.5 mg/dL (8.5-10.1); Chloride 109 mmol/L (98-107); Cholesterol 217 mg/dL (200); Creatinine, Serum 0.71 mg/dL (0.55-1.02); EST Glomerular Filtration Rate 85 mL/min (>60); Est Glom Filt Rate - Afr Amer 103 mL/min (>60); Globulin 3.4 g/dL (2.2-4.2); Glucose 91 mg/dL (74-106); High Density Lipoprotein 58 mg/dL; Potassium 4.2 mmol/L (3.5-5.1); Protein, Total 7.1 g/dL (6.4-8.2); Sodium Level 137 mmol/L (136-145); Triglycerides 152 mg/dL; Very Low Density Lipoprotein 30 mg/dL (5-40)
== END | disposition home or self-care (01) ==
LOC: MFPLAB 10:26
PROVIDERS: PCP Family Medicine; Referring Provider Family Medicine; Visit Provider Family Medicine
DX: E78.5 Hyperlipidemia, unspecified (principal)
CPT/HCPCS: 36415; 80053; 80061; 85025

== ENCOUNTER → 2022-09-23 | Outpatient (CLI) | payer MEDICARE, OTHER, SELFPAY ==
[2022-09-23 10:15] LABS: Absolute Lymphocyte Count 1.16 X10^3/uL (0.83-4.51); Absolute Neutrophil Count 0.8 X10^3/uL (2.0-7.7); Basophil# 0.02 X10^3/uL; Basophil% 0.6 % (0-1); Eosinophil# 0.19 X10^3/uL; Eosinophils% 5.7 % (0-5); Hematocrit 39.5 % (37-47); Hemoglobin 12.1 g/dL (12.0-15.0); Lymphocyte # 1.16 X10^3/ul (0.83-4.51); Lymphocyte % 34.7 % (19-41); Mean Corp Hgb Conc 30.6 g/dL (32-36); Mean Corpuscular Hgb 27.9 pg (27.0-32.0); Mean Platelet Vol. 11.3 fl (6.2-12.0); Monocyte# 1.07 X10^3/uL; NRBC Flagged by Analyzer 0 % (0-5); Neutrophil # 0.79 X10^3/uL (2.7-7.7); Neutrophil % 23.7 % (47-70); POSITIVE DIFFERENTIAL YES; Platelet Count 203 K/mm3 (150-450); RBC Distribution Width CV 12.7 % (11.6-14.6); RBC Distribution Width SD 42.2 fl (35.1-43.9); Red Blood Count 4.34 M/mm3 (4.2-5.4); White Blood Count 3.3 K/mm3 (4.4-11.0)
[2022-09-23 10:20] LABS: Differential Indicated SCAN CRITERIA MET
== END | disposition home or self-care (01) ==
LOC: MFPLAB 08:39
PROVIDERS: PCP Family Medicine; Referring Provider Family Medicine; Visit Provider Family Medicine
DX: D72.819 Decreased white blood cell count, unspecified (principal)
CPT/HCPCS: 36415; 85025

== ENCOUNTER → 2023-02-05 | Outpatient (CLI) | payer MEDICARE, OTHER, SELFPAY ==
[2023-02-05 15:05] LABS: Hematocrit 39.4 % (37-47); Hemoglobin 12.3 g/dL (12.0-15.0); Mean Corp Hgb Conc 31.2 g/dL (32-36); Mean Corpuscular Hgb 28.6 pg (27.0-32.0); Mean Corpuscular Volume 91.6 fL (81-99); RBC Distribution Width CV 12.9 % (11.6-14.6); White Blood Count 2.9 K/mm3 (4.4-11.0)
[2023-02-05 15:06] LABS: Absolute Lymphocyte Count 1.05 X10^3/uL (0.83-4.51); Absolute Neutrophil Count 0.8 X10^3/uL (2.0-7.7); Basophil# 0.01 X10^3/uL; Basophil% 0.3 % (0-1); Eosinophil# 0.09 X10^3/uL; Eosinophils% 3.1 % (0-5); Lymphocyte # 1.05 X10^3/ul (0.83-4.51); Lymphocyte % 36.2 % (19-41); Mean Platelet Vol. 11.4 fl (6.2-12.0); NRBC Flagged by Analyzer 0 % (0-5); Neutrophil # 0.77 X10^3/uL (2.7-7.7); Neutrophil % 26.6 % (47-70); POSITIVE DIFFERENTIAL YES; Platelet Count 205 K/mm3 (150-450); RBC Distribution Width SD 43.1 fl (35.1-43.9)
[2023-02-05 15:08] LABS: Differential Indicated SCAN CRITERIA MET
[2023-02-05 15:31] LABS: ALB/GLOB Ratio 1.1 RATIO (0.9-2.4); AST(SGOT) 11 U/L (15-37); Alanine Aminotransfer ALT/SGPT 15 U/L (13-56); Alkaline Phosphatase 61 U/L (45-117); Anion Gap 6 (5-15); BUN 10 mg/dL (7-18); BUN/Creat Ratio 14.2 RATIO (10-20); Calcium,Total 8.6 mg/dL (8.5-10.1); Chloride 105 mmol/L (98-107); Cholesterol 227 mg/dL (200); EST Glomerular Filtration Rate 86 mL/min (>60); Est Glom Filt Rate - Afr Amer 104 mL/min (>60); Globulin 3.8 g/dL (2.2-4.2); Glucose 72 mg/dL (74-106); High Density Lipoprotein 65 mg/dL; Potassium 4.4 mmol/L (3.5-5.1); Protein, Total 7.8 g/dL (6.4-8.2); Sodium Level 139 mmol/L (136-145); Triglycerides 122 mg/dL; Very Low Density Lipoprotein 24 mg/dL (5-40)
[2023-02-05 15:42] LABS: Differential Comment SCANNED
== END | disposition home or self-care (01) ==
LOC: MFPLAB 11:59
PROVIDERS: PCP Family Medicine; Visit Provider Family Medicine
DX: E78.5 Hyperlipidemia, unspecified (principal)
CPT/HCPCS: 36415; 80053; 80061; 85025

== ENCOUNTER → 2023-10-28 | Outpatient (CLI) | payer MEDICARE, OTHER, SELFPAY ==
--- NOTE | 2023-10-28 07:33 | BI_ITS ---
MAMMOGRAPHY - BILATERAL SCREENING 3-D TOMOSYNTHESIS REASON FOR EXAM: Female, 73 years old. SCREENING PERTINENT HISTORY: No significant family history. TECHNIQUE: 2-D mammograms and 3-D Tomosynthesis of the breast (s) were performed. CAD was performed. COMPARISON: 08/25/2022 FINDINGS: The breast composition is composed of scattered fibroglandular density. Scattered benign calcifications are seen. No dense spiculated masses or suspicious microcalcifications are identified. No architectural distortion is identified. There is no skin thickening or retraction. There has been no significant change since the prior study. BI/SCRN MAMM (CAD)W/MURRAY BILAT IMPRESSION: No mammographic signs of malignancy. Routine yearly mammograms recommended. ASSESSMENT CATEGORY: BIRADS Category 1: Negative. A letter regarding these results will be sent to the patient by the facility within 30 days. FOLLOW UP RECOMMENDATION: Yearly follow up mammogram recommended. (A) Approximately 10% of breast cancers are not detected by mammography. A normal mammogram should not delay biopsy of a clinically suspicious abnormality. Electronically Signed: Geovany Robert MD at 9:32 EDT ,
== END | disposition home or self-care (01) ==
LOC: OPBI 07:32
PROVIDERS: PCP Family Medicine; Referring Provider Family Medicine; Visit Provider Family Medicine
DX: Z12.31 Encounter for screening mammogram for malignant neoplasm of breast (principal)
CPT/HCPCS: 77063; 77067

== ENCOUNTER → 2023-12-01 | Outpatient (CLI) | payer MEDICARE, OTHER, SELFPAY ==
--- NOTE | 2023-12-01 15:04 | RAD_ITS ---
STUDY: X-RAY - BILATERAL RIBS WITH CHEST REASON FOR EXAM: Female, 73 years old. Pain. TECHNIQUE - RIBS: 3 views of the ribs. TECHNIQUE - CHEST: Single PA view of the chest. COMPARISON: None. FINDINGS - RIBS : Normal visualized ribs without a demonstrated acute fracture. FINDINGS - CHEST: The lungs are clear and expanded. There is no demonstrated pleural abnormality. Normal size heart. Normal mediastinum and yoly. Normal visualized pulmonary arteries. Normal visualized aortic arch and descending thoracic aorta. There is dextroscoliosis of the lumbar spine. Normal visualized ribs, clavicles, and shoulders. There is no demonstrated abnormality of the visualized soft tissue structures of the upper abdomen. RAD/Ribs Bilat 3V No CXR IMPRESSION: RIBS: No demonstrated acute rib fracture. CHEST: Dextroscoliosis of the lumbar spine. Electronically Signed: Indra Andujar MD at 16:08 EDT ,
== END | disposition home or self-care (01) ==
PROVIDERS: PCP Family Medicine; Referring Provider Family Medicine; Visit Provider Family Medicine
DX: R07.81 Pleurodynia (principal)
CPT/HCPCS: 71110

== ENCOUNTER → 2024-02-08 | Outpatient (CLI) | payer MEDICARE, OTHER, SELFPAY ==
[2024-02-08 09:57] LABS: Absolute Lymphocyte Count 1.49 X10^3/uL (0.83-4.51); Absolute Neutrophil Count 1.1 X10^3/uL (2.0-7.7); Basophil# 0.03 X10^3/uL; Basophil% 0.7 % (0-1); Eosinophils% 4.7 % (0-5); Hemoglobin 12.3 g/dL (12.0-15.0); Lymphocyte # 1.49 X10^3/ul (0.83-4.51); Lymphocyte % 34.7 % (19-41); Mean Corp Hgb Conc 30.8 g/dL (32-36); Mean Corpuscular Volume 91.1 fL (81-99); Mean Platelet Vol. 11.7 fl (6.2-12.0); Monocyte# 1.43 X10^3/uL; Monocyte% 33.3 % (0-10); NRBC Flagged by Analyzer 0 % (0-5); Neutrophil # 1.08 X10^3/uL (2.7-7.7); Neutrophil % 25.2 % (47-70); Platelet Count 200 K/mm3 (150-450); RBC Distribution Width CV 12.6 % (11.6-14.6); RBC Distribution Width SD 42.1 fl (35.1-43.9); Red Blood Count 4.39 M/mm3 (4.2-5.4); White Blood Count 4.3 K/mm3 (4.4-11.0)
[2024-02-08 10:18] LABS: Vitamin B12 298 pg/mL (211-911)
[2024-02-08 11:40] LABS: ALB/GLOB Ratio 1.1 RATIO (0.9-2.4); AST(SGOT) 14 U/L (15-37); Alanine Aminotransfer ALT/SGPT 14 U/L (13-56); Albumin, Serum 3.9 g/dL (3.2-5.0); Alkaline Phosphatase 66 U/L (45-117); Anion Gap 6 (5-15); BUN 9 mg/dL (7-18); BUN/Creat Ratio 13.2 RATIO (10-20); Chloride 104 mmol/L (98-107); Cholesterol 226 mg/dL (200); Creatinine, Serum 0.68 mg/dL (0.55-1.02); EST Glomerular Filtration Rate 89 mL/min (>60); Est Glom Filt Rate - Afr Amer 108 mL/min (>60); Globulin 3.7 g/dL (2.2-4.2); Glucose 86 mg/dL (74-106); High Density Lipoprotein 61 mg/dL; Potassium 4.1 mmol/L (3.5-5.1); Protein, Total 7.6 g/dL (6.4-8.2); Sodium Level 137 mmol/L (136-145); Triglycerides 116 mg/dL; Very Low Density Lipoprotein 23 mg/dL (5-40)
== END | disposition home or self-care (01) ==
LOC: MFPLAB 08:54
PROVIDERS: PCP Family Medicine; Visit Provider Family Medicine
DX: E78.5 Hyperlipidemia, unspecified (principal); E53.8 Deficiency of other specified B group vitamins
CPT/HCPCS: 36415; 80053; 80061; 82607; 82746; 85025

== ENCOUNTER 2024-03-02 10:00 | Outpatient (RCR) | payer MEDICARE, OTHER, SELFPAY | END 2024-03-02 19:00 | disposition home or self-care (01) | LOC: PT 10:00 | PROVIDERS: PCP Family Medicine; Referring Provider Family Medicine; Visit Provider Family Medicine | DX: M67.813 Other specified disorders of tendon, right shoulder (principal) | CPT/HCPCS: 97110; 97162 ==

== ENCOUNTER → 2024-08-22 | Outpatient (CLI) | payer MEDICARE, OTHER, SELFPAY ==
--- NOTE | 2024-08-22 08:59 | RAD_ITS ---
PROCEDURE: HIP, UNI W/ PELVIS 2-3 VIEWS 08/22/2024 REASON FOR EXAM: Right hip pain and bruising following a recent fall. TECHNIQUE: Three views of the right hip were obtained. COMPARISON: None. FINDINGS: Mild degree of joint space narrowing. Acetabular spur. No acute abnormality is seen. RAD/HIP, UNI W/ Pelvis 2-3 Views IMPRESSION: DEGENERATIVE OSTEOARTHROSIS. NO ACUTE FINDINGS. Reading Location: [place] [id number]
== END | disposition home or self-care (01) ==
LOC: MTRAD 08:51
PROVIDERS: PCP Family Medicine
DX: M25.551 Pain in right hip (principal)
CPT/HCPCS: 73502

== ENCOUNTER → 2024-12-21 | Outpatient (CLI) | payer MEDICARE, OTHER, SELFPAY ==
--- NOTE | 2024-12-21 11:03 | RAD_ITS ---
EXAM: XR Bilateral Hips With Pelvis When Performed, 2 or 3 Views CLINICAL INDICATION: PAIN TECHNIQUE: Three or four views of the bilateral hips with pelvis when performed. COMPARISON: No relevant prior studies available. FINDINGS: BONES/JOINTS: Mild degenerative changes of the hip joints, bilaterally. Mild degenerative changes of the pubic symphysis. No acute fracture. No dislocation. SOFT TISSUES: Unremarkable. RAD/Hips B/L min 2 views w/ Pelvis IMPRESSION: Degenerative changes as above. Reading [facility]
== END | disposition home or self-care (01) ==
PROVIDERS: PCP Family Medicine; Visit Provider Family Medicine
DX: M25.551 Pain in right hip (principal); M25.552 Pain in left hip
CPT/HCPCS: 73521

== ENCOUNTER → 2025-01-01 | Outpatient (CLI) | payer MEDICARE, OTHER, SELFPAY ==
--- NOTE | 2025-01-01 07:47 | BI_ITS ---
EXAM: SCRN MAMM (CAD)W/MURRAY BILAT DATE: 01/01/2025 CLINICAL HISTORY: F, Age 74 y/o , SCREENING No family history. TECHNIQUE: SCRN MAMM (CAD)W/MURRAY BILAT COMPARISON: Prior exam(s) dated October 28, 2023.. FINDINGS: TISSUE DENSITY: There are scattered areas of fibroglandular density. Bilateral Breast Mammographic Findings: No significant masses, calcifications or other abnormalities are identified. No suspicious masses, areas of developing architectural distortion, or suspicious calcifications. There has been no significant interval change. BI/SCRN MAMM (CAD)W/MURRAY BILAT IMPRESSION: Stable examination. OVERALL FINAL ASSESSMENT BI-RADS 1: NEGATIVE. RECOMMENDATION: Routine annual follow-up in 1 Year A letter with findings and recommendations will be mailed to the patient. Reading Location: [id number]
== END | disposition home or self-care (01) ==
LOC: OPBI 07:46
PROVIDERS: PCP Family Medicine; Referring Provider Family Medicine; Visit Provider Family Medicine
DX: Z12.31 Encounter for screening mammogram for malignant neoplasm of breast (principal)
CPT/HCPCS: 77063; 77067

== ENCOUNTER → 2025-02-13 | Outpatient (CLI) | payer MEDICARE, OTHER, SELFPAY ==
[2025-02-13 10:21] LABS: Hematocrit 42.5 % (37-47); Hemoglobin 13.2 g/dL (12.0-15.0); Immature Granulocytes Count 0.120 X10^3/uL (0.0-0.0); Mean Corp Hgb Conc 31.1 g/dL (32-36); Mean Corpuscular Volume 92.0 fL (81-99); Mean Platelet Vol. 11.6 fl (6.2-12.0); NRBC Flagged by Analyzer 0 % (0-5); Platelet Count 197 K/mm3 (150-450); RBC Distribution Width CV 13.2 % (11.6-14.6); RBC Distribution Width SD 45.1 fl (35.1-43.9); Red Blood Count 4.62 M/mm3 (4.2-5.4); White Blood Count 3.4 K/mm3 (4.4-11.0)
[2025-02-13 12:24] LABS: AST(SGOT) 15 U/L (<=31); Alanine Aminotransfer ALT/SGPT 7 U/L (<=34); Albumin, Serum 4.3 g/dL (3.4-4.8); Alkaline Phosphatase 65 U/L (35-104); Chloride 106 mmol/L (98-108); Cholesterol 229 mg/dL (<=200); Low Density Lipoprotein Calc. 137 mg/dL; Potassium 3.8 mmol/L (3.3-5.1); Triglycerides 93 mg/dL; Very Low Density Lipoprotein 19 mg/dL (5-40); cholesterol:hdl ratio screen 3.10
[2025-02-13 12:46] LABS: Anion Gap 12 (5-15); BUN 11 mg/dL (4-19); BUN/Creat Ratio 16.7 RATIO (10-20); Calcium,Total 8.9 mg/dL (7.6-11.0); Carbon Dioxide 23.8 mmol/L (21.0-32.0); Globulin 2.9 g/dL (2.2-4.2); Glucose 83 mg/dL (70-99); Vitamin B12 203 pg/mL (180-914)
== END | disposition home or self-care (01) ==
LOC: MFPLAB 08:49
PROVIDERS: PCP Family Medicine; Referring Provider Family Medicine; Visit Provider Family Medicine
DX: E78.5 Hyperlipidemia, unspecified (principal)
CPT/HCPCS: 36415; 80053; 80061; 82607; 85025

== ENCOUNTER → 2025-04-19 | Outpatient (CLI) | payer MEDICARE, OTHER, SELFPAY ==
[2025-04-19 18:04] LABS: Hematocrit 38.1 % (37-47); Hemoglobin 12.2 g/dL (12.0-15.0); Immature Granulocytes Count 0.050 X10^3/uL (0.0-0.0); Mean Corp Hgb Conc 32.0 g/dL (32-36); Mean Corpuscular Volume 89.6 fL (81-99); Mean Platelet Vol. 11.7 fl (6.2-12.0); NRBC Flagged by Analyzer 0 % (0-5); POSITIVE DIFFERENTIAL YES; Platelet Count 170 K/mm3 (150-450); RBC Distribution Width CV 12.3 % (11.6-14.6); RBC Distribution Width SD 40.6 fl (35.1-43.9); Red Blood Count 4.25 M/mm3 (4.2-5.4); White Blood Count 4.1 K/mm3 (4.4-11.0)
[2025-04-19 18:06] LABS: Differential Indicated SCAN CRITERIA MET
[2025-04-19 18:31] LABS: Reactive Lymphocyte 1+
[2025-04-19 18:42] LABS: AST(SGOT) 17 U/L (<=31); Alanine Aminotransfer ALT/SGPT 7 U/L (<=34); Albumin, Serum 4.5 g/dL (3.4-4.8); Alkaline Phosphatase 53 U/L (35-104); Anion Gap 12 (5-15); BUN 9 mg/dL (4-19); BUN/Creat Ratio 13.2 RATIO (10-20); Calcium,Total 9.3 mg/dL (7.6-11.0); Carbon Dioxide 26.7 mmol/L (21.0-32.0); Chloride 101 mmol/L (98-108); Globulin 2.6 g/dL (2.2-4.2); Glucose 86 mg/dL (70-99); Potassium 3.3 mmol/L (3.3-5.1); Vitamin B12 249 pg/mL (180-914); Vitamin D,25 Hydroxy 18.8 ng/mL (30-100)
[2025-04-21 12:08] LABS: Lyme Scn Total Ab w/Rflx Negative (Negative)
== END | disposition home or self-care (01) ==
LOC: MTLAB 15:24
PROVIDERS: PCP Family Medicine; Referring Provider Family Medicine; Visit Provider Family Medicine
DX: R53.83 Other fatigue (principal)
CPT/HCPCS: 36415; 80053; 82306; 82607; 84439; 84443; 85025; 86618

== ENCOUNTER → 2025-05-02 | Outpatient (CLI) | payer MEDICARE, OTHER, SELFPAY ==
--- NOTE | 2025-05-02 13:15 | MRI_ITS ---
PROCEDURE: BRAIN W/WO CONTRAST 05/02/2025 REASON FOR EXAM: DYSMETRIA, LOSS OF BALANCE TECHNIQUE: Procedure Code: [id number] Modality: MR Procedure: BRAIN W/WO CONTRAST Multiplanar and multisequence images were obtained. CONTRAST: VOLUME: mL FINDINGS: Moderate ventriculomegaly, disproportionate with the size of the sulcal spaces. This raises concern for communicating hydrocephalus, possibly NPH. Alternatively, this could represent central atrophy. A few subtle scattered small FLAIR hyperintense foci are noted within the bilateral cerebral white matter, and the pontine white matter, nonspecific but likely representing very mild chronic microvascular ischemic changes. No corresponding enhancement. Otherwise the brain parenchyma appears unremarkable. The coppola-white matter differentiation is appropriate. No midline shift. The midline structures are intact, specifically the corpus callosum, septum pellucidum, pituitary gland, and cerebellar vermis. The cervicomedullary junction appears unremarkable. Evidence of bilateral cataract surgery. The paranasal sinuses and mastoid air cells are clear. Diffusion-weighted images demonstrate no restricted diffusion. No abnormal enhancement pattern. MRI/Brain W/WO Contrast IMPRESSION: Moderate ventriculomegaly disproportionate with the size of the sulcal spaces. This is concerning for communicating hydrocephalus, possibly NPH. Please correlate clinically. Alternatively this could represent central atrophy. A few nonspecific, nonenhancing FLAIR hyperintense foci within the bilateral ce rebral and pontine white matter, likely representing very mild chronic microvascular ischemic changes. Reading Location: [id number]
== END | disposition home or self-care (01) ==
LOC: MRI 13:12
PROVIDERS: PCP Family Medicine; Referring Provider Family Medicine; Visit Provider Family Medicine
DX: R26.89 Other abnormalities of gait and mobility (principal)
CPT/HCPCS: 70553; A9575; A4216